=== PATIENT | female | born 1970 | race Caucasian/White ===

== ENCOUNTER 2016-09-12 21:37 | Emergency (ER) | payer BC ==
[2016-09-12 21:44] VITALS: RESP 20
--- NOTE | 2016-09-12 21:54 | ED ---
Chest Pain HPI - General Chief Complaint: Chest Pain Stated Complaint: Chest Pain Time Seen by Provider: 09/12/16 21:47 Source: patient, RN notes reviewed Mode of arrival: wheelchair Limitations: no limitations - History of Present Illness Initial Comments: Patient is a 45-year-old female with chief complaint of a vague dull chest pain for the past day. Patient reports that she was up and active while at home today trying to get things ready for a trip. Patient reports that she drink a 5 hour energy drink and thinks that this could be related to the pain. Patient reports that throughout the day she's felt that she's had some chest discomfort. She states that she did feels some increased shortness of breath while doing activities today. Patient states that she is a nonsmoker. She denies any previous cardiac history. She does have a family history of heart disease. She states that she is relatively healthy at this time. She does have a sense of abdominal surgery history including cholecystectomy and complications after that surgery. Currently at this time patient denies any chest pain. She states that it is somewhat reproducible to palpation over the left breast. Patient denies any diaphoresis, shoulder pain, nausea or vomiting. She states that she has had no fever or chills and denies any cough. - Related Data Home Medications Medication Instructions Recorded Confirmed No Known Home Medications [No 04/08/16 09/12/16 Known Home Medications] Allergies Allergy/AdvReac Type Severity Reaction Status Date / Time azithromycin Allergy Diarrhea Verified 09/12/16 21:44 Review of Systems ROS Statement: Those systems with pertinent positive or pertinent negative responses have been documented in the HPI. ROS Other: All systems not noted in ROS Statement are negative. EKG Findings - EKG Comments: EKG Findings:: EKG shows normal sinus rhythm. Ventricular rate 85 bpm. NH interval 132 ms. QRS duration 76 ms. QT/QTC 370/449 ms. 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 History of Any Multi-Drug Resistant Organisms: None Reported Past Surgical History: Section, Cholecystectomy Additional Past Surgical History / Comment(s): adominal surgery for perforation after cholecystectomy; abdominalplasty, bunions Past Anesthesia/Blood Transfusion Reactions: No Reported Reaction Past Psychological History: No Psychological Hx Reported Smoking Status: Former smoker Past Alcohol Use History: Occasional Past Drug Use History: None Reported - Past Family History Mother Family Medical History: No Reported History General Exam - General Exam Comments Initial Comments: Well-appearing 45-year-old female. No acute distress. Limitations: no limitations General appearance: alert, in no apparent distress Head exam: Present: atraumatic, normocephalic, normal inspection Eye exam: Present: normal appearance, PERRL, EOMI. Absent: scleral icterus, conjunctival injection, periorbital swelling ENT exam: Present: normal exam, mucous membranes moist Neck exam: Present: normal inspection. Absent: tenderness, meningismus, lymphadenopathy Respiratory exam: Present: normal lung sounds bilaterally. Absent: respiratory distress, wheezes, rales, rhonchi, stridor Cardiovascular Exam: Present: regular rate, normal rhythm, normal heart sounds. Absent: systolic murmur, diastolic murmur, rubs, gallop, clicks GI/Abdominal exam: Present: soft, normal bowel sounds. Absent: distended, tenderness, guarding, rebound, rigid Extremities exam: Present: normal inspection, full ROM, normal capillary refill. Absent: tenderness, pedal edema, joint swelling, calf tenderness Back exam: Present: normal inspection Neurological exam: Present: alert, oriented X3, CN II-XII intact Psychiatric exam: Present: normal affect, normal mood Skin exam: Present: warm, dry, intact, normal color. Absent: rash Course Vital Signs 09/12/16 09/12/16 21:41 23:19 Temperature 98.2 F 98.3 F Pulse Rate 78 78 Respiratory 20 20 Rate Blood Pressure 122/83 113/56 O2 Sat by Pulse 98 98 Oximetry - Reevaluation(s) Reevaluation #1: 09/12/16 23:35 Patient was reevaluated at this time. Patient reports that she does notice the pain whenever she moves her arms or seems to take a very deep breath. Days of that the pain is a muscular skeletal issue. Chest Pain [facility] Patient is a 45-year-old female with chief complaint of a vague dull chest pain for the past day. Patient reports that she was up and active while at home today trying to get things ready for a trip. Patient reports that she drink a 5 hour energy drink and thinks that this could be related to the pain. Patient reports that throughout the day she's felt that she's had some chest discomfort. She states that she did feels some increased shortness of breath while doing activities today. Patient states that she is a nonsmoker. She denies any previous cardiac history. She does have a family history of heart disease. She states that she is relatively healthy at this time. She does have a sense of abdominal surgery history including cholecystectomy and complications after that surgery. Currently at this time patient denies any chest pain. She states that it is somewhat reproducible to palpation over the left breast. Patient's EKG is reviewed and shows normal sinus rhythm. No evidence of ST elevation or T-wave inversion. Patient was given IV fluids and labs are obtained. All of her labs are negative for any acute process. Chest x-ray was also negative for pneumonia or cardiomegaly. Patient was reevaluated states that her pain is still there but it seems to be reproducible whenever she is taking a severe deep breath and expands her chest wall muscles. Patient states that it didn't reproducible. Patient's cardiac enzymes were all within normal limits. Given the fact that this pain has been occurring for the entire day there would likely be an elevated and cardiac enzymes at this time. Patient will be discharged and instructed to follow-up with Dr. Valenzuela her primary care physician. I did recommend that she does have a stress test given her family history of heart disease. Patient's mother family agrees. Patient will be discharged at this time and return parameters were discussed. Disposition Clinical Impression: Pleuritic pain Disposition: HOME SELF-CARE Condition: Good Instructions: Chest Pain (ED) Additional Instructions: Follow-up with primary care physician discussed about repeating a cardiac stress test. I recommended taking Motrin or Tylenol for pain. Return to the emergency department if any alarming signs or symptoms occur. Time of Disposition: 23:38
[2016-09-12] MEDS ORDERED: SODIUM CHLORIDE 0.9% 1,000 ML IV STA (22:03)
[2016-09-12] MEDS ORDERED: KETOROLAC 30 MG/ML 1 ML VIAL IVP STA (22:08)
[2016-09-12 22:29] LABS: Basophils # (A) 0.1 k/uL (0-0.2); Basophils % (A) 1 %; CH 28.3; CHCM 33.4; Eosinophils # (A) 0.1 k/uL (0-0.7); Eosinophils % (A) 1 %; HCT 39.7 % (34.0-46.0); HDW 2.54; HGB 12.9 gm/dL (11.4-16.0); Luc # (Auto) 0.22; Luc % (Auto) 2; Lymphocytes # (A) 2.4 k/uL (1.0-4.8); Lymphocytes % (A) 20 %; MCH 27.8 pg (25.0-35.0); MCHC 32.6 g/dL (31.0-37.0); MCV 85.1 fL (80.0-100.0); Mean Platelet Volume 7.1; Monocytes # (A) 0.5 k/uL (0-1.0); Monocytes % (A) 4 %; Neutrophils # (A) 8.7 k/uL (1.3-7.7); Neutrophils % (A) 73 %; RBC 4.66 m/uL (3.80-5.40); RDW 12.9 % (11.5-15.5); WBC (Perox) 12.21
--- NOTE | 2016-09-12 22:45 | XR ---
EXAM: XR Chest, 2 Views. CLINICAL HISTORY: Reason: Chest Pain TECHNIQUE: Frontal and lateral views of the chest. COMPARISON: No relevant prior studies available. FINDINGS: Lungs: Unremarkable. No consolidation. Pleural space: Unremarkable. No pneumothorax. Heart: Unremarkable. No cardiomegaly. Mediastinum: Unremarkable. Bones/joints: Intact without acute abnormality seen. Distal left clavicle appears to be slightly larger than the distal right clavicle although there is overlying artifact from tech marker, and this may be projectional as well, rather than a subtle expansile lesion. This could be reassessed electively. Upper abdomen: Upper abdominal surgical clips noted on the lateral view presumably from cholecystectomy. IMPRESSION: 1. No acute intrathoracic abnormality. 2. Nonacute findings, as above.
[2016-09-12 22:46] LABS: ALT 58 U/L (9-52); AST 35 U/L (14-36); Alkaline Phosphatase 99 U/L (38-126); Amylase 69 U/L (30-110); Anion Gap 11 mmol/L; Blood Urea Nitrogen 15 mg/dL (7-17); Calcium 9.3 mg/dL (8.4-10.2); Carbon Dioxide 26 mmol/L (22-30); Chloride 102 mmol/L (98-107); Glucose 92 mg/dL (74-99); Magnesium 1.8 mg/dL (1.6-2.3); Non-African American GFR(MDRD) >60 (>60 ml/min/1.73 sqM); Potassium 3.9 mmol/L (3.5-5.1); Sodium 139 mmol/L (137-145); Total Bilirubin 0.4 mg/dL (0.2-1.3); Total Protein 7.5 g/dL (6.3-8.2)
[2016-09-12 22:50] LABS: Prothrombin Time 10.1 sec (9.0-12.0)
[2016-09-12 22:54] LABS: Creatine Kinase 63 U/L (30-135)
[2016-09-12 23:04] LABS: Appearance,Urine Clear (Clear); Bilirubin,Urine Negative (Negative); Glucose,Urine (UA) Negative (Negative); Ketones,Urine Negative (Negative); Leukocyte Esterase,Urine Negative (Negative); Nitrite,Urine Negative (Negative); Protein,Urine Negative (Negative); Specific Gravity,Urine 1.006 (1.001-1.035); UA Billing (MACRO vs. MICRO) CHEM; Urobilinogen,Urine <2.0 mg/dL (<2.0)
[2016-09-12 23:08] LABS: Creatine Kinase MB <0.2 ng/mL (0.0-2.4); Troponin I <0.012 ng/mL (0.000-0.034)
[2016-09-12 23:51] VITALS: BP 102/53; PULSE 80; TEMP 98.1
== END 2016-09-12 23:59 | disposition home or self-care (01) ==
LOC: EC 21:37
DX: R07.89 Other chest pain (principal); R06.02 Shortness of breath; Z87.891 Personal history of nicotine dependence; Z88.1 Allergy status to other antibiotic agents
CPT/HCPCS: 99285; 96374; 36415; 93005; 85379; 80053; 82150; 82550; 82553; 83690; 83735; 84484; 85025; 85610; 85730; 81003; 71020; 96361; J1885

== ENCOUNTER → 2017-09-27 | Outpatient (CLI) | payer BC ==
--- NOTE | 2017-09-28 10:33 | MM ---
Reason for exam: screening (asymptomatic). Last mammogram was performed 2 years and 1 month ago. Physical Findings: A clinical breast exam by your physician is recommended on an annual basis and results should be correlated with mammographic findings. MG Screening Mammo w CAD Bilateral CC and MLO view(s) were taken. Prior study comparison: August 14, 2015, bilateral MG screening mammo w CAD. June 11, 2014, bilateral MG diagnostic mammo w CAD PARMINDER. The breast tissue is heterogeneously dense. This may lower the sensitivity of mammography. Distortion upper outer right breast. This finding is changed when compared with previous exams. ASSESSMENT: Incomplete: need additional imaging evaluation, BI-RAD 0 RECOMMENDATION: Special view mammogram of the right breast. If lesion persists on supplemental views, image directed ultrasound is recommended. [facility] will attempt to contact patient to return for supplemental views and ultrasound if indicated.
== END | disposition home or self-care (01) ==
LOC: RADMAMWWP 16:53
PROVIDERS: ATTEND Obstetrics & Gynecology
DX: Z12.31 Encounter for screening mammogram for malignant neoplasm of breast (principal)
CPT/HCPCS: 77067

== ENCOUNTER → 2017-10-04 | Outpatient (CLI) | payer BC ==
--- NOTE | 2017-10-04 08:23 | MM ---
Reason for exam: additional evaluation requested from abnormal screening. Last mammogram was performed less than 1 month ago. Physical Findings: Nurse did not find any significant physical abnormalities on exam. MG Work Up Mamm w CAD RT Spot compression CC, spot compression MLO, and ML view(s) were taken of the right breast. Prior study comparison: September 27, 2017, bilateral MG screening mammo w CAD. August 14, 2015, bilateral MG screening mammo w CAD. The breast tissue is heterogeneously dense. This may lower the sensitivity of mammography. With spot compression, appearance is similar to 06/11/14. No clear persisting architectural distortion. These results were verbally communicated with the patient and result sheet given to the patient on 10/04/17. ASSESSMENT: Probably benign, BI-RAD 3 RECOMMENDATION: Follow-up diagnostic mammogram of the right breast in 6 months.
== END | disposition home or self-care (01) ==
LOC: RADMAMWWP 07:39
PROVIDERS: ATTEND Obstetrics & Gynecology
DX: R92.8 Other abnormal and inconclusive findings on diagnostic imaging of breast (principal)
CPT/HCPCS: 77065

== ENCOUNTER 2018-03-12 15:34 | Emergency (ER) | payer BC ==
--- NOTE | 2018-03-12 16:06 | ED ---
General Adult HPI - General Chief complaint: Chest Pain Stated complaint: Chest pain Source: patient Mode of arrival: wheelchair Limitations: no limitations - History of Present Illness Initial comments: Dictation was produced using [employer] dictation software. please excuse any grammatical, word or spelling errors. Chief Complaint: 47-year-old female with past medical history of reflex dystrophy syndrome presents with 20 minute episode of chest pain. History of Present Illness: 47-year-old female with past medical history of RDS presents with 20 minute episode of chest pain that radiates to the back. Patient states that her symptoms have currently resolved. She states that she was watching TV at home by herself when she had episode of severe chest pain that radiated to the back. She states that some of this pain radiated to her left upper neck. Patient denies any cardiac history. Denies any smoking, dyslipidemia or hypertension or diabetes. Patient has family history of cardiac disease in her father and brother. Patient denies any paresthesias to the arms and legs. The ROS documented in this emergency department record has been reviewed and confirmed by me. Those systems with pertinent positive or negative responses have been documented in the HPI. All other systems are other negative and/or noncontributory. - Related Data Home Medications Medication Instructions Recorded Confirmed No Known Home Medications 04/08/16 09/12/16 Allergies Allergy/AdvReac Type Severity Reaction Status Date / Time azithromycin Allergy Diarrhea Verified 03/12/18 15:38 Review of Systems ROS Statement: Those systems with pertinent positive or pertinent negative responses have been documented in the HPI. ROS Other: All systems not noted in ROS Statement are negative. 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 History of Any Multi-Drug Resistant Organisms: None Reported Past Surgical History: Section, Cholecystectomy Additional Past Surgical History / Comment(s): adominal surgery for perforation after cholecystectomy; abdominalplasty, bunions Past Anesthesia/Blood Transfusion Reactions: No Reported Reaction Past Psychological History: No Psychological Hx Reported Smoking Status: Former smoker Past Alcohol Use History: Occasional Past Drug Use History: None Reported - Past Family History Mother Family Medical History: No Reported History General Exam - General Exam Comments Initial Comments: PHYSICAL EXAM: General Impression: Alert and oriented x3, not in acute distress HEENT: Normocephalic atraumatic, extra-ocular movements intact, pupils equal and reactive to light bilaterally, mucous membranes moist. Cardiovascular: Heart regular rate and rhythm, S1&S2 audible, no murmurs, rubs or gallops Chest: Lungs clear to auscultation bilaterally, no rhonchi, no wheeze, no rales Abdomen: Bowel sounds present, abdomen soft, non-tender, non-distended, no organomegaly Musculoskeletal: Pulses present and equal in all extremities, no peripheral edema Motor: Power 5/5 bilaterally, no focal deficits noted Neurological: CN II-XII grossly intact, no focal motor or sensory deficits noted Skin: Intact with no visualized rashes Psych: Normal affect and mood Limitations: no limitations Course Vital Signs 03/12/18 03/12/18 03/12/18 15:36 16:45 17:47 Temperature 98.2 F Pulse Rate 72 82 78 Respiratory 16 6 L 16 Rate Blood Pressure 126/65 138/81 145/90 O2 Sat by Pulse 100 99 100 Oximetry 03/12/18 19:04 Temperature Pulse Rate 81 Respiratory 15 Rate Blood Pressure 123/67 O2 Sat by Pulse Oximetry Medical Decision Making - Medical Decision Making ED course: 47-year-old female presents with 20 minute episode of chest pain with radiation to the back and is resolved. Vital signs upon arrival are within acceptable limits. Initial EKG showed no findings to suggest acute cardiopulmonary process. Repeat EKG performed several minutes later showed no dynamic changes.Laboratory evaluation obtained. CBC unremarkable, metabolic panel unremarkable. 2 sets of cardiac enzymes are negative. Chest x-ray shows no acute processes. Patient's pain is atypical. Patient does not have any risk factors. Cranial heart score patient is low risk. Patient feels comfortable being discharged to have outpatient workup of chest pain. Patient given aspirin. Patient is told to take daily aspirin. Advised follow-up with primary care physician. Patient states she may be a candidate for cardiac stress test. Told to come back to the emergency department should she have another repeat episode of this. At this point there is no high-risk features to patient's chest pain. No clinical suspicion of acute aortic dissection given that patient is well-appearing and has bilateral symmetrical pulses. Patient understandable agreeable to disposition. All questions and concerns are addressed. EKG Interpretation: A 12 lead EKG was obtained. It was interpreted by myself and attending physician. There is a P wave before every QRS complex. Rate is 81. Rhythm is normal sinus rhythm, MA interval 150, QRS 84, QTC 427. QT is not prolonged. No ST segment depression or elevation. Overall, this EKG is unremarkable - Lab Data Result diagrams: 03/12/18 16:03 03/12/18 16:03 Lab Results 03/12/18 03/12/18 03/12/18 Range/Units 16:03 16:03 16:03 WBC 9.5 (3.8-10.6) k/uL RBC 5.00 (3.80-5.40) m/uL Hgb 14.2 (11.4-16.0) gm/dL Hct 43.9 (34.0-46.0) % MCV 87.7 (80.0-100.0) fL MCH 28.4 (25.0-35.0) pg MCHC 32.4 (31.0-37.0) g/dL RDW 12.9 (11.5-15.5) % Plt Count 243 (150-450) k/uL Neutrophils % 72 % Lymphocytes % 20 % Monocytes % 4 % Eosinophils % 1 % Basophils % 1 % Neutrophils # 6.9 (1.3-7.7) k/uL Lymphocytes # 1.9 (1.0-4.8) k/uL Monocytes # 0.3 (0-1.0) k/uL Eosinophils # 0.1 (0-0.7) k/uL Basophils # 0.1 (0-0.2) k/uL Sodium 141 (137-145) mmol/L Potassium 4.3 (3.5-5.1) mmol/L Chloride 102 (98-107) mmol/L Carbon Dioxide 25 (22-30) mmol/L Anion Gap 14 mmol/L BUN 16 (7-17) mg/dL Creatinine 0.82 (0.52-1.04) mg/dL Est GFR (CKD-EPI)AfAm >90 (>60 ml/min/1.73 sqM) Est GFR (CKD-EPI)NonAf 87 (>60 ml/min/1.73 sqM) Glucose 92 (74-99) mg/dL Calcium 10.3 H (8.4-10.2) mg/dL Total Bilirubin 0.4 (0.2-1.3) mg/dL AST 26 (14-36) U/L ALT 28 (9-52) U/L Alkaline Phosphatase 86 (38-126) U/L Total Creatine Kinase 52 (30-135) U/L CK-MB (CK-2) 0.3 (0.0-2.4) ng/mL CK-MB (CK-2) Rel Index 0.6 Troponin I <0.012 (0.000-0.034) ng/mL Total Protein 8.4 H (6.3-8.2) g/dL Albumin 5.0 (3.5-5.0) g/dL 03/12/18 Range/Units 19:00 WBC (3.8-10.6) k/uL RBC (3.80-5.40) m/uL Hgb (11.4-16.0) gm/dL Hct (34.0-46.0) % MCV (80.0-100.0) fL MCH (25.0-35.0) pg MCHC (31.0-37.0) g/dL RDW (11.5-15.5) % Plt Count (150-450) k/uL Neutrophils % % Lymphocytes % % Monocytes % % Eosinophils % % Basophils % % Neutrophils # (1.3-7.7) k/uL Lymphocytes # (1.0-4.8) k/uL Monocytes # (0-1.0) k/uL Eosinophils # (0-0.7) k/uL Basophils # (0-0.2) k/uL Sodium (137-145) mmol/L Potassium (3.5-5.1) mmol/L Chloride (98-107) mmol/L Carbon Dioxide (22-30) mmol/L Anion Gap mmol/L BUN (7-17) mg/dL Creatinine (0.52-1.04) mg/dL Est GFR (CKD-EPI)AfAm (>60 ml/min/1.73 sqM) Est GFR (CKD-EPI)NonAf (>60 ml/min/1.73 sqM) Glucose (74-99) mg/dL Calcium (8.4-10.2) mg/dL Total Bilirubin (0.2-1.3) mg/dL AST (14-36) U/L ALT (9-52) U/L Alkaline Phosphatase (38-126) U/L Total Creatine Kinase (30-135) U/L CK-MB (CK-2) (0.0-2.4) ng/mL CK-MB (CK-2) Rel Index Troponin I <0.012 (0.000-0.034) ng/mL Total Protein (6.3-8.2) g/dL Albumin (3.5-5.0) g/dL Disposition Clinical Impression: Chest pain Disposition: HOME SELF-CARE Condition: Good Instructions: Chest Pain (ED) Is patient prescribed a controlled substance at d/c from ED?: No Referrals: Calos Valenzuela DO [Primary Care Provider] - 1-2 days Time of Disposition: 20:07
[2018-03-12 16:15] LABS: Basophils # (A) 0.1 k/uL (0-0.2); Basophils % (A) 1 %; Eosinophils # (A) 0.1 k/uL (0-0.7); Eosinophils % (A) 1 %; HCT 43.9 % (34.0-46.0); HGB 14.2 gm/dL (11.4-16.0); Lymphocytes # (A) 1.9 k/uL (1.0-4.8); Lymphocytes % (A) 20 %; MCH 28.4 pg (25.0-35.0); MCHC 32.4 g/dL (31.0-37.0); MCV 87.7 fL (80.0-100.0); Mean Platelet Volume 7.2; Monocytes # (A) 0.3 k/uL (0-1.0); Monocytes % (A) 4 %; Neutrophils # (A) 6.9 k/uL (1.3-7.7); Neutrophils % (A) 72 %; Platelet Count 243 k/uL (150-450); RDW 12.9 % (11.5-15.5); WBC 9.5 k/uL (3.8-10.6)
--- NOTE | 2018-03-12 16:17 | XR ---
EXAMINATION TYPE: XR chest 2V DATE OF EXAM: 03/12/2018 COMPARISON: Chest radiograph 09/12/2016 HISTORY: Chest pain and back pain TECHNIQUE: Frontal and lateral views of the chest are obtained. FINDINGS: There is no focal air space opacity, pleural effusion, or pneumothorax seen. The cardiac silhouette size is within normal limits. The osseous structures are intact. Similar appearance of t he left clavicle. IMPRESSION: No acute cardiopulmonary process. No significant interval change.
[2018-03-12 16:31] LABS: ALT 28 U/L (9-52); AST 26 U/L (14-36); Alkaline Phosphatase 86 U/L (38-126); Anion Gap 14 mmol/L; Blood Urea Nitrogen 16 mg/dL (7-17); Calcium 10.3 mg/dL (8.4-10.2); Carbon Dioxide 25 mmol/L (22-30); Chloride 102 mmol/L (98-107); Creatine Kinase 52 U/L (30-135); Glucose 92 mg/dL (74-99); Potassium 4.3 mmol/L (3.5-5.1); Sodium 141 mmol/L (137-145); Total Bilirubin 0.4 mg/dL (0.2-1.3); Total Protein 8.4 g/dL (6.3-8.2)
[2018-03-12 16:43] LABS: Creatine Kinase MB 0.3 ng/mL (0.0-2.4); Troponin I <0.012 ng/mL (0.000-0.034)
[2018-03-12] MEDS ORDERED: KETOROLAC 30 MG/ML 1 ML VIAL IVP STA (18:03)
[2018-03-12 19:04] VITALS: RESP 15
[2018-03-12] MEDS ORDERED: ASPIRIN 81 MG PO STA (20:06)
[2018-03-12 20:20] VITALS: BP 117/69; PULSE 77; TEMP 97.9
== END 2018-03-12 20:20 | disposition home or self-care (01) ==
LOC: EC 15:34
DX: R07.89 Other chest pain (principal); Z87.891 Personal history of nicotine dependence; Z82.49 Family history of ischemic heart disease and other diseases of the circulatory system; Z88.1 Allergy status to other antibiotic agents
CPT/HCPCS: 36415; 93005; 80053; 82550; 82553; 84484; 85025; 71046; 99285; 96374; J1885

== ENCOUNTER → 2018-04-14 | Outpatient (CLI) | payer BC ==
--- NOTE | 2018-04-14 16:26 | ECHOF ---
Referral Reason:R07.9 Chest pain MEASUREMENTS -------- HEIGHT: 172.7 cm WEIGHT: 99.8 kg BP: IVSd: 1.1 cm (0.6 - 1.1) LVIDd: 4.2 cm (3.9 - 5.3) LVPWd: 1.3 cm (0.6 - 1.1) IVSs: 1.9 cm LVIDs: 2.1 cm LVPWs: 2.0 cm RVIDd: 2.7 cm (< 3.3) Ao Diam: 2.9 cm (2.0 - 3.7) LA Diam: 2.9 cm (2.7 - 3.8) AV Cusp: 2.3 cm (1.5 - 2.6) EPSS: 0.4 cm MV E Jonathan: 0.82 m/s MV DecT: 234 ms MV A Jonathan: 0.56 m/s MV E/A Ratio: 1.46 AR PHT: 156 ms RAP: 5.00 mmHg RVSP: 14.00 mmHg MV EF SLOPE: 94.29 mm/s (70 - 150) MV EXCURSION: 11.84 mm (> 18.000) FINDINGS -------- Sinus rhythm. This was a technically good study. The left ventricular size is normal. There is borderline concentric left ventricular hypertrophy. Overall left ventricular systolic function is normal with, an EF between 55 - 60 %. The right ventricle is normal in size and function. The left atrium is normal in size. The right atrium is normal in size. The aortic valve is trileaflet and appears structurally normal. Trace amount of aortic regurgitatio n. The mitral valve leaflets are mildly thickened. Mild mitral regurgitation is present. Trace tricuspid regurgitation present. The right ventricular systolic pressure, as measured by Dopp ler, is 14.00mmHg. Pulmonic valve appears structurally normal. The aortic root size is normal. The pericardium is normal. CONCLUSIONS -------- 1. Sinus rhythm. 2. This was a technically good study. 3. The left ventricular size is normal. 4. There is borderline concentric left ventricular hypertrophy. 5. Overall left ventricular systolic function is normal with, an EF between 55 - 60 %. 6. The right ventricle is normal in size and function. 7. The left atrium is normal in size. 8. The right atrium is normal in size. 9. The aortic valve is trileaflet and appears structurally normal. 10. Trace amount of aortic regurgitation. 11. The mitral valve leaflets are mildly thickened. 12. Mild mitral regurgitation is present. 13. Trace tricuspid regurgitation present. 14. The right ventricular systolic pressure, as measured by Doppler, is 14.00mmHg. 15. Pulmonic valve appears structurally normal. 16. The aortic root size is normal. 17. The pericardium is normal. ADOBE MAKER: Kaur Motta RDCS
--- NOTE | 2018-04-14 20:39 | EST ---
EXERCISE STRESS AGE: 47 SEX: F HT: 68 WT: 220 PROTOCOL: Cortez STAGE: 3 DURATION OF EXERCISE: 8:00 HEART RATE REST: 85 BLOOD PRESSURE REST: 120/79 MAXIMUM HEART RATE ACHIEVED: 156 MAXIMUM BLOOD PRESSURE: 173/61 85% MPHR: 149 100% MPHR: 175 METS: 9.7 INDICATIONS: CP CLINICAL INFORMATION: 47-year-old female referred by Dr. Cortés for evaluation of chest pain. She underwent exercise stress test. Baseline heart rate 85 beats per minute. Baseline blood pressure 120/79 mmHg. Baseline 12-lead ECG shows sinus rhythm with nonspecific ST-T abnormalities in the in the lateral precordial leads with early repolarization abnormality in the high lateral leads. Patient exercised on a Cortez protocol for 8 minutes achieving a peak heart rate of 156 beats per minute. There was no ECG evidence for ischemia. No arrhythmias noted. Nuclear portion of the stress test will be reported separately. IMPRESSION: Average exercise capacity. Normal blood pressure response to exercise. No ECG evidence for ischemia. No arrhythmias noted. MMODL / IJN: [id number] /
== END | disposition home or self-care (01) ==
LOC: RADNMMAIN 08:49
PROVIDERS: ATTEND Family Medicine
DX: I34.0 Nonrheumatic mitral (valve) insufficiency (principal); I51.7 Cardiomegaly; R07.9 Chest pain, unspecified
CPT/HCPCS: 93017; 93306

== ENCOUNTER → 2018-05-25 | Outpatient (CLI) | payer BC ==
--- NOTE | 2018-05-25 09:18 | MM ---
Reason for exam: follow-up at short interval from prior study. Last mammogram was performed 8 months ago. Physical Findings: Nurse did not find any significant physical abnormalities on exam. MG 3D Diag Mammo W/Cad PARMINDER Bilateral CC and MLO view(s) were taken. Prior study comparison: October 04, 2017, right breast MG work up mamm w CAD RT. September 27, 2017, bilateral MG screening mammo w CAD. The breast tissue is heterogeneously dense. This may lower the sensitivity of mammography. No suspicious calcifications are seen. There is no discrete abnormality. No significant new findings when compared with previous films. These results were verbally communicated with the patient and result sheet given to the patient on 05/25/18. ASSESSMENT: Negative, BI-RAD 1 RECOMMENDATION: Return to routine screening mammogram schedule for both breasts.
== END ==
LOC: RADMAMWWP 08:18
PROVIDERS: ATTEND Obstetrics & Gynecology
DX: N64.4 Mastodynia (principal)
CPT/HCPCS: 77062; 77066

== ENCOUNTER 2018-09-02 10:41 | Day surgery (SDC) | payer BC ==
[2018-08-30 14:20] VITALS: BMI 31.9
[~2018-09-02 10:41] MED LIST: LACTATED RINGERS 1,000 ML IV SCH; LIDOCAINE 1% 20 ML VIAL (10MG/ML) FOR IV START INTRADERMA PRN
[2018-09-02 11:23] VITALS: TEMP 98.4
[2018-09-02] MEDS ORDERED: LIDOCAINE 1% INJ 10MG/ML (20 ML MDV) ONE (11:59)
[2018-09-02] MEDS ORDERED: PROPOFOL 10 MG/ML 20 ML VIAL IV ONE (11:59)
--- NOTE | 2018-09-02 12:19 | P.PCN ---
Date of Procedure: 09/02/18 Procedure(s) Performed: BRIEF HISTORY: Patient is a 47-year-old pleasant white female, scheduled for an elective colonoscopy as a part of evaluation of intermittent rectal bleeding for the last 3 weeks' duration. She had an episode of significant bleeding that lasted for about 3 days and since then has been having intermittent bleeding. Denies any significant change in her bowel habits. PROCEDURE PERFORMED: Colonoscopy. PREOPERATIVE DIAGNOSIS: Intermittent rectal bleeding. IV sedation per Anesthesia. PROCEDURE: After informed consent was obtained, the patient, was brought into the endoscopy unit. IV sedation was administered by Anesthesia under continuous monitoring. Digital rectal examination was normal. Initially the Olympus CF-160 flexible video colonoscope was then inserted in the rectum, gradually advanced into the cecum without any difficulty. Careful examination was performed as the scope was gradually being withdrawn. Ileocecal valve and the appendiceal orifice were visualized and appeared normal. Prep was excellent. Mucosa of the cecum, ascending colon, transverse colon, descending colon, sigmoid colon, and rectum appeared normal. Scattered sigmoid diverticulosis seen. Retroflexion was performed in the rectum and small internal hemorrhoids were seen. The patient tolerated the procedure well. IMPRESSION: Normal-appearing colon from rectum to cecum with no evidence of colitis or colorectal neoplasia Scattered sigmoid diverticulosis Small internal hemorrhoids. RECOMMENDATIONS: Findings of this examination were discussed with the patient as well as a family. She was advised to be a high-fiber diet and fiber supplements a regular basis and avoid straining and constipation.
[2018-09-02 12:58] VITALS: BP 131/80; PULSE 64; RESP 18
== END 2018-09-02 13:13 | disposition home or self-care (01) ==
LOC: ORWHC2ENDO 10:41
PROVIDERS: ATTEND Internal Medicine Gastroenterology
DX: K57.30 Diverticulosis of large intestine without perforation or abscess without bleeding (principal); K64.8 Other hemorrhoids; K62.5 Hemorrhage of anus and rectum; K21.9 Gastro-esophageal reflux disease without esophagitis; Z90.49 Acquired absence of other specified parts of digestive tract; Z87.891 Personal history of nicotine dependence; Z79.899 Other long term (current) drug therapy; Z88.1 Allergy status to other antibiotic agents
CPT/HCPCS: 81025; 45378; J2001; J2704

== ENCOUNTER 2019-06-08 06:32 | Day surgery (SDC) | payer BC ==
[2019-06-06 12:04] VITALS: BMI 34.9
[~2019-06-08 06:32] MED LIST changes: +DEXAMETHASONE SOD PHOSPHATE 10 MG/ML 1 ML VIAL IV ONE; +HYDROmorphone 0.5 MG/0.5 ML SYRINGE IVP PRN; -LACTATED RINGERS 1,000 ML IV SCH; +MIDAZOLAM 2 MG/2 ML VIAL IV PRN; +ONDANSETRON 4 MG/2 ML VIAL IVP ONE; +SCOPOLAMINE 1.5MG/72HR PATCH TRANSDERM ONE
[2019-06-08] MEDS: LACTATED RINGERS 1,000 ML IV SCH ×2 (07:36→13:56)
[2019-06-08] MEDS ORDERED: ROPIVACAINE 5 MG/ML 30 ML VIAL ONE (07:52)
[2019-06-08] MEDS ORDERED: PHENYLEPHRINE-0.9% NACL SYG 1 MG/10 ML SYRINGE ONE (07:52)
[2019-06-08] MEDS ORDERED: fentaNYL (PF) 50 MCG/ML 2 ML AMP ONE (07:52)
[2019-06-08] MEDS ORDERED: LIDOCAINE 1% INJ 10MG/ML (20 ML MDV) ONE (07:52)
[2019-06-08] MEDS ORDERED: PROPOFOL 10 MG/ML 20 ML VIAL IV ONE (07:52)
[2019-06-08] MEDS ORDERED: MIDAZOLAM 2 MG/2 ML VIAL ONE (07:52)
[2019-06-08] MEDS ORDERED: GLYCOPYRROLATE 0.2 MG/ML 2 ML VIAL ONE (07:52)
[2019-06-08] MEDS ORDERED: ROCURONIUM BROMIDE 10 MG/ML 10 ML VIAL IV ONE (07:52)
[2019-06-08] MEDS ORDERED: SUCCINYLCHOLINE CHLORIDE 100 MG/5 ML SYR IV ONE (07:52)
[2019-06-08] MEDS ORDERED: DEXAMETHASONE SOD PHOSPHATE 4 MG/ML 1 ML VIAL ONE (07:52)
[2019-06-08] MEDS ORDERED: HYDROmorphone (PF) 1 MG/ML ONE (07:52)
[2019-06-08] MEDS ORDERED: NEOSTIGMINE 1 MG/ML 10 ML VIAL ONE (07:52)
--- NOTE | 2019-06-08 10:19 | P.OP ---
Date of Procedure: 06/08/19 Preoperative Diagnosis: Recurrent right hallux valgus deformity Postoperative Diagnosis: same Procedure(s) Performed: 1. Triplanar corrective first tarsometatarsal joint arthrodesis 2. Correction of right hallux valgus with modified Acevedo procedure 3. Use of fluoroscopy by physician, right foot 4. Application of short leg splint by physician, right leg Anesthesia: GETA, regional Surgeon: Jonathan White Communications Controller #1: Costa Loo IV fluids (ml): 1,200 Pathology: none sent Condition: stable Disposition: PACU Indications for Procedure: the patient is very pleasant previously healthy 48 year old female who previously underwent right hallux valgus surgery by a corporate account executive several years ago. She had a distal first metatarsal osteotomy, aggressive medial eminence resection, and an Geraldo osteotomy. she had significant under correction of her deformity and developed a painful, recurrent deformity. She failed a long course of nonsurgical treatment including shoe modification, and toe spacers. She presented to my office with continued pain. Clinically she had a moderate to severe hallux valgus deformity. She had no pain with passive range of motion of the first MTP joint or the sesamoids. Her x-rays showed prior surgery with an aggressive medial eminence resection, distal first metatarsal osteotomy, and an Geraldo osteotomy as well as a widened intermetatarsal angle, an incongruent first MTP joint, and uncovered to the lateral sesamoid. We discussed different surgical options including a first MTP arthrodesis and a modified Lapidus procedure. The patient had no pain with passive range of motion of the MTP joint and requested a modified Lapidus type procedure. Since she had no pain with passive range of motion of the first MTP joint or pain at the sesamoids this is reasonable. She understands the limitations and correction due to the prior surgery. We discussed potential risks and complications of surgery including but not limited to risk of anesthesia, infection, wound healing issues, nonunion, malunion, under correction, overcorrection, recurrence, DVT, PE, to satisfaction with surgery, need for further surgery, some dramatic hardware, and possibly loss of life or limb. Patient also knowledge other less common complications. She provided consent to go forward with surgery. Description of Procedure: the patient was identified in preop holding and the correct right foot was yohan ed with my initials. I reviewed the consent form with the patient and her mom. All their questions were answered. A block was given by anesthesia. The patient was then brought back to the operating room. She was positioned on the OR table where an anesthetic and antibiotics were given by anesthesia. A tourniquet was applied to the proximal aspect of the right leg. A bump was placed in the right buttock internally rotate the leg to neutral. The left leg was secured to the table foam and tape. The right leg was then prepped and draped in the standard sterile fashion. Prior to starting surgery timeout was performed identifying the correct patient, operative extremity, and procedure. The patient's leg was then elevated, exsanguinated with an Esmarch bandage, and the tourniquet was inflated to 250 mmHg. I began by outlining a longitudinal incision starting at the proximal pole of the medial cuneiform and extending distally to the midshaft of the first metatarsal. The EHL tendon was found to be "bowstring tight" and a Z- lengthening was performed. The capsule was incised longitudinally in line with the skin incision. The first tarsometatarsal joint was opened. A saw was used to plane the first metatarsal base for rotation and a quarter inch osteotome was used to release the plantar capsule to free up the metatarsal for rotation. A 1 inch incision was then made in the first webspace. Dissection was carried down to the subcutaneous tissue. The Acevedo portion of the procedure was then performed releasing the abductor tendon, the lateral joint capsule of the MTP joint, and the sesamoid suspensory ligament. attention was then turned proximally. A joystick was placed in the 2 o'clock position of the metatarsal parallel and 1 cm distal to the TMT joint. Under live fluoroscopy I rotated the first metatarsal and was able to cover the lateral sesamoid. A pocket hole was made at the lateral base the first metatarsal and a 2.5 mm fulcrum was placed. A stab incision was made over the midshaft of the second metatarsal. An triage assistant rotated the first metatarsal joystick pin and I placed the positioner with 1 miroslava over the lateral shaft of the second metatarsal and the Over the plantar medial flare of the first metatarsal. The positioner was gently tightened to 2 fingerbreadths tightness. Fluoroscopy was used to verify correction. A K wire was placed within the positioner to hold the correction. Fluoroscopy was then used to verify correction again. The lateral sesamoid was covered, there was correction of the intermetatarsal angle, and there was medial gapping of the tarsometatarsal joint. I then placed the joint seeker in the far lateral portion of the joint to "make a corner" with the fulcrum. A low angle cut guide was placed over the joint seeker and pinned into place. Fluoroscopy was used to verify that flat conservative cuts were made off the cuneiform and metatarsal. An oblique pin was then placed through the cut guide hold the cu tting guide down to bone. A small microsagittal saw was used to remove bone from the medial cuneiform and metatarsal. The cut guide, oblique pin, and positioner were all removed. A distractor was placed with an extra 10 of rotation. The cut bone was removed and the joint was thoroughly irrigated. On inspection of her flat symmetric cuts of the cuneiform and metatarsal. All cartilage had been removed. A 2.0 mm drill bit was used to thoroughly fenestrate the subchondral bone. I then gently tightened the compressor placing the 1 mm fulcrum laterally. Clinically the toe appeared straight. Fluoroscopy was used to verify correction of the deformity and full symmetric compression of the joint on biplanar fluoroscopy. An eccentric replaced olive tipped K wires placed laterally across the joint holding the reduction. I then proceeded to place the medial plate with locking screws. The dorsal plate was placed as far lateral as possible and secured with locking screws. The olive-tipped K wire was removed. The correction clinically appeared to be excellent. Fluoroscopy was taken to verify correction and placement of hardware. The wound was then thoroughly irrigated and closed in layers with 2-0 Vicryl for the capsule, 3-0 Ethibond for the EHL tendon repair, 3-0 Monocryl for the deep subcu, and 3-0 nylon for the skin. A sterile dressing was applied. The drapes were taken down and a well-padded bulky Steele splint was placed with the ankle in neutral. The patient was awoken from her anesthetic, transferred from the OR table to a gurney, and brought to recovery haven't helped procedure well. Costa Loo PA-C was required to skilled triage assistant for patient positioning, surgical exposure, retraction, placement of hardware, and application of splint. Plan: The patient is going to be discharged home as an outpatient purchase strictly nonweightbearing on her operative extremity. She is to leave the splint on at all times. He will follow-up in 2 weeks for splint removal, nonweightbearing x-rays of the foot, and likely suture removal.
[2019-06-08 10:38] VITALS: TEMP 99.3
--- NOTE | 2019-06-08 10:44 | FL ---
Fluoroscopy HISTORY: Arthrodesis, hallux valgus deformity 80 seconds fluoroscopy time supplied to the referring clinician. 4 intraoperative C-arm images docum ent the procedure. See dictated report from orthopedic surgery.
--- NOTE | 2019-06-08 10:49 | XR ---
Limited right foot HISTORY: Hallux valgus deformity 4views of the right foot from intraoperative imaging document the procedure
[2019-06-08] MEDS ORDERED: MIDAZOLAM 2 MG/2 ML VIAL IVP ONE ×2 (12:20→12:23)
[2019-06-08] MEDS ORDERED: HYDROmorphone 1 MG/ML 1 ML SYRINGE IVP ONE ×3 (12:35→12:41)
[2019-06-08 12:54] VITALS: RESP 16
[2019-06-08] MEDS ORDERED: HYDROcodone/APAP 5-325MG 1 EACH TAB PO ONE (13:00)
[2019-06-08 13:56] VITALS: BP 111/74; PULSE 96
--- NOTE | 2019-06-08 21:22 | P.ANPRN ---
Procedure Note - Anesthesia - Nerve Block Performed Right Popliteal Single Time Out Performed: Yes Date of Procedure: 06/08/19 Procedure Start Time: : Procedure Stop Time: : Location of Patient: PreOp Indication: Acute Post-Operative Pain, Requested by Surgeon Sedation Type: Sedate with meaningful contact maintained Preparation: Sterile Prep Position: Left Lateral Needle Types: Pajunk Needle Gauge: 21 Ultrasound used to visualize needle placement: Yes Ultrasound used to observe medication spread: Yes Blood Aspirated: No Pain Paresthesia on Injection Noted: No Resistance on Injection: Normal Image Stored and Saved: Yes Events: Uneventful and Well Tolerated (ropi .5% 30 cc plus dexamethasone 4mg)
--- NOTE | 2019-06-08 21:24 | P.ANPRN ---
Procedure Note - Anesthesia - Nerve Block Performed Right Adductor Canal Single Time Out Performed: Yes Date of Procedure: 06/08/19 Procedure Start Time: 11:16 Procedure Stop Time: 11:20 Location of Patient: PreOp Indication: Acute Post-Operative Pain, Requested by Surgeon Sedation Type: Sedate with meaningful contact maintained Preparation: Sterile Prep Position: Supine Needle Types: Pajunk Needle Gauge: 21 Ultrasound used to visualize needle placement: Yes Ultrasound used to observe medication spread: Yes Blood Aspirated: No Pain Paresthesia on Injection Noted: No Resistance on Injection: Normal Image Stored and Saved: Yes Events: Uneventful and Well Tolerated (ropi .5% 30 cc)
== END 2019-06-08 14:14 | disposition home or self-care (01) ==
LOC: OR 06:32
PROVIDERS: ATTEND Orthopaedic Surgery
DX: M20.11 Hallux valgus (acquired), right foot (principal); M20.22 Hallux rigidus, left foot; F32.9 Major depressive disorder, single episode, unspecified; K58.9 Irritable bowel syndrome, unspecified; Z79.899 Other long term (current) drug therapy; Z88.1 Allergy status to other antibiotic agents; Z90.49 Acquired absence of other specified parts of digestive tract; Z98.890 Other specified postprocedural states; Z97.3 Presence of spectacles and contact lenses; Z87.891 Personal history of nicotine dependence; Z82.49 Family history of ischemic heart disease and other diseases of the circulatory system; Z83.3 Family history of diabetes mellitus
CPT/HCPCS: 28740; 28292; 64447; 81025; 76942; 73620; C1713; J2250; J1100 ×2; J2710; J0690; J2405; J2001; J3010; J1170; J2795; J2370; J0330; J2704; 64445

== ENCOUNTER → 2020-02-01 | Outpatient (CLI) | payer BC ==
[2020-02-01 15:19] VITALS: BP 122/68; PULSE 89; RESP 16; TEMP 98.2; BMI 37.0
--- NOTE | 2020-02-01 19:21 | P.HPBAR ---
Bariatric H&P - History & Physicial H&P Date: 02/01/20 History & Physicial: Visit/CC: Initial Patient initial contact: Initial weight: 113.653 kg Initial weight in pounds: 250.56 Height: 5 ft 9 in Initial BMI: 37.0 Last weight: Current weight: 113.653 kg Current weight in pounds: 250.56 Current BMI: 37.0 [place] body weight (based on NIH guidelines): 65.771 kg Excess body weight loss: 0.0% The patient is a 49 year-old F who presents for Bariatric Assessment. Patient presents stating she is interested in sleeve gastrectomy. The patient suffers from GERD. She believes she may have sleep apnea but no testing was performed. No tobacco use. BMI 37. Denies DVT or dysphagia. In 2007 patient had abdominoplasty. 2009 the patient underwent laparoscopic cholecystectomy but unfortunately she apparently had some sort of bowel leak postoperatively which required laparotomy and bowel resection. Patient has a large midline incision. Review of Systems The patient denies any acute changes in vision or hearing, no dysphagia or odynophagia, no chest pain or shortness of breath, no dysuria or hematuria, no headache, no runny nose, no rectal bleeding or melena, no unexplained weight loss Past Medical History Past Medical History: GERD/Reflux, Osteoarthritis (OA), Sleep Apnea/CPAP/BIPAP Additional Past Medical History / Comment(s): RSD(REFLEX SYMPATHETIC DYSTROPHY)- CURRENTLY IN REMISSION. History of Any Multi-Drug Resistant Organisms: None Reported Past Surgical History: Section, Cholecystectomy, Orthopedic Surgery, Ut erine Ablation Additional Past Surgical History / Comment(s): CHOLECYSTECTOMY AND SMALL INTESTINE NICKED AND HAD ABDOMINAL SURGERY, ABDOMINOPLASTY, BUNIONECTOMY. Past Anesthesia/Blood Transfusion Reactions: Postoperative Nausea & Vomiting (PONV) Additional Past Anesthesia/Blood Transfusion Reaction / Comm: FIRST COLONOSCOPY SHE WAS AWARE OF WHAT WAS GOING ON. Past Psychological History: Anxiety, Depression Smoking Status: Former smoker Past Alcohol Use History: Occasional Additional Past Alcohol Use History / Comment(s): QUIT SMOKING in 2002, SMOKED 10 YEARS. Past Drug Use History: None Reported - Past Family History Mother Family Medical History: No Reported History Surgical - Exam Vital Signs Temp Pulse Resp BP 98.2 F 89 16 122/68 02/01/20 15:15 02/01/20 15:15 02/01/20 15:15 02/01/20 15:15 Physical exam: General: Well-developed, well-nourished HEENT: Normocephalic, sclerae nonicteric Abdomen: Nontender, nondistended, large midline incision and transverse Pfannenstiel incision from abdominoplasty Extremities: No edema Neuro: Alert and oriented Bariatric Assessment & Plan (1) Obesity (BMI 30-39.9) Narrative/Plan: 49-year-old female with complaints of obesity. Patient has initiated her supervised weight loss requirements. She is on second month out of 7. We'll tentatively plan EGD 4-5 months from now. Will obtain patient's previous operative report from her bowel resection. We'll order sleep study at this time. Risks and benefits of the surgical options reviewed in detail with the patient today. All questions answered. Status: Acute Bariatric Checklist Checklist: Plan: Checklist: EGD: 1. Hiatal hernia: 2. H. Pylori: HgbA1c: Vitamin D: Smoking: Former smoker Primary care physician referral: Shameka Cortés Psychiatry clearance: Cardiology clearance: Sleep study: Diet journal: VTE risk score: VTE risk level: Rehab needs at discharge:
== END | disposition home or self-care (01) ==
LOC: BARWHC3 14:40
PROVIDERS: ATTEND Surgery
DX: E66.9 Obesity, unspecified (principal); Z68.30 Body mass index [BMI] 30.0-30.9, adult; Z87.891 Personal history of nicotine dependence
CPT/HCPCS: 99201

== ENCOUNTER → 2020-03-07 | Outpatient (CLI) | payer BC ==
[2020-03-07 15:54] LABS: HCT 41.4 % (34.0-46.0); HGB 13.4 gm/dL (11.4-16.0); MCH 28.1 pg (25.0-35.0); MCHC 32.5 g/dL (31.0-37.0); MCV 86.6 fL (80.0-100.0); Mean Platelet Volume 7.5; Platelet Count 255 k/uL (150-450); RBC 4.78 m/uL (3.80-5.40); RDW 12.9 % (11.5-15.5); WBC 11.2 k/uL (3.8-10.6)
[2020-03-08 01:25] LABS: African American GFR (CKD) 101.8 (60.0-200.0); Albumin 4.8 g/dL (3.80-4.90); Anion Gap 8.4 mmol/L (4.00-12.00); BUN/Creat Ratio 23.75 Ratio (12.00-20.00); Calcium 9.5 mg/dL (8.7-10.3); Carbon Dioxide 28.6 mmol/L (21.6-31.8); Globulin 2.4 g/dL (1.6-3.3); Non-African American GFR(CKD) 87.8 (60.0-200.0); Potassium 4.3 mmol/L (3.5-5.5); Total Bilirubin 0.2 mg/dL (0.3-1.2); Total Protein 7.2 g/dL (6.2-8.2)
[2020-03-08 01:34] LABS: Folate, Serum 12.1 ng/mL
== END | disposition home or self-care (01) ==
LOC: LABWHC1 15:19
PROVIDERS: ATTEND Surgery
DX: E55.9 Vitamin D deficiency, unspecified (principal); K90.89 Other intestinal malabsorption; E66.01 Morbid (severe) obesity due to excess calories
CPT/HCPCS: 36415; 80053; 82306; 82607; 82746; 83036; 83540; 84425; 85027; 93005

== ENCOUNTER → 2020-03-07 | Outpatient (CLI) | payer BC ==
--- NOTE | 2020-03-11 08:59 | MM ---
Reason for exam: screening (asymptomatic). Last mammogram was performed 1 year and 9 months ago. Physical Findings: A clinical breast exam by your physician is recommended on an annual basis and results should be correlated with mammographic findings. MG Screening Mammo w CAD Bilateral CC and MLO view(s) were taken. Prior study comparison: May 25, 2018, bilateral MG 3d diag mammo w/cad PARMINDER. October 04, 2017, right breast MG work up mamm w CAD RT. The breast tissue is heterogeneously dense. This may lower the sensitivity of mammography. No significant changes when compared with prior studies. ASSESSMENT: Negative, BI-RAD 1 RECOMMENDATION: Routine screening mammogram of both breasts in 1 year.
== END | disposition home or self-care (01) ==
LOC: RADMAMWWP 15:04
PROVIDERS: ATTEND Family Medicine
DX: Z12.31 Encounter for screening mammogram for malignant neoplasm of breast (principal)
CPT/HCPCS: 77067

== ENCOUNTER → 2020-06-04 | Day surgery (SDC) | payer BC ==
[2020-05-30 15:44] VITALS: BMI 39.8
[~2020-06-04] MED LIST changes: -DEXAMETHASONE SOD PHOSPHATE 10 MG/ML 1 ML VIAL IV ONE; +GLYCOPYRROLATE 0.2 MG/ML 2 ML VIAL ONE; -HYDROmorphone 0.5 MG/0.5 ML SYRINGE IVP PRN; +LACTATED RINGERS 1,000 ML IV SCH; +LIDOCAINE 1% (10MG/ML) FOR IV START INTRADERMA PRN; -LIDOCAINE 1% 20 ML VIAL (10MG/ML) FOR IV START INTRADERMA PRN; +LIDOCAINE 1% INJ 10MG/ML (20 ML MDV) ONE; -MIDAZOLAM 2 MG/2 ML VIAL IV PRN; +MIDAZOLAM 2 MG/2 ML VIAL ONE; -ONDANSETRON 4 MG/2 ML VIAL IVP ONE; +PROPOFOL 10 MG/ML 20 ML VIAL IV ONE; -SCOPOLAMINE 1.5MG/72HR PATCH TRANSDERM ONE
[2020-06-04 09:45] VITALS: TEMP 97.4
--- NOTE | 2020-06-04 10:03 | P.GSHP ---
History of Present Illness H&P Date: 06/04/20 Chief Complaint: GERD Patient today for upper endoscopy. Patient with history of chronic reflux. Patient is being worked up for sleeve gastrectomy. Past Medical History Past Medical History: GERD/Reflux, Osteoarthritis (OA), Sleep Apnea/CPAP/BIPAP Additional Past Medical History / Comment(s): RSD(REFLEX SYMPATHETIC DYSTROPHY). MIGRAINE HEADACHE, History of Any Multi-Drug Resistant Organisms: None Reported Past Surgical History: Section, Cholecystectomy, Orthopedic Surgery, Uterine Ablation Additional Past Surgical History / Comment(s): CHOLECYSTECTOMY AND SMALL INTESTINE NICKED AND HAD ABDOMINAL SURGERY, ABDOMINOPLASTY, BUNIONECTOMY. Past Anesthesia/Blood Transfusion Reactions: Postoperative Nausea & Vomiting (PONV) Additional Past Anesthesia/Blood Transfusion Reaction / Comment(s): FIRST COLONOSCOPY SHE WAS AWARE OF WHAT WAS GOING ON." Smoking Status: Former smoker - Past Family History Mother Family Medical History: No Reported History Medications and Allergies Home Medications Medication Instructions Recorded Confirmed Type FLUoxetine HCL [PROzac] 20 mg PO HS 08/30/18 06/04/20 History Spironolactone 50 mg PO HS 06/06/19 06/04/20 History Omeprazole [PriLOSEC] 20 mg PO DAILY PRN 02/01/20 06/04/20 History Phentermine HCl [Adipex P] 3,705 mg PO AC-BRKFST 05/30/20 06/04/20 History diphenhydrAMINE [Benadryl] 25 mg PO HS PRN 05/30/20 06/04/20 History Allergies Allergy/AdvReac Type Severity Reaction Status Date / Time erythromycin base AdvReac Nausea & Verified 06/04/20 09:45 Vomiting Surgical - Exam Vital Signs Temp Pulse Resp BP Pulse Ox 97.4 F L 97 16 166/71 97 06/04/20 09:44 06/04/20 09:44 06/04/20 09:44 06/04/20 09:44 06/04/20 09:44 Physical exam: General: Well-developed, well-nourished HEENT: Normocephalic, sclerae nonicteric Abdomen: Nontender, nondistended Extremities: No edema Neuro: Alert and oriented Assessment and Plan (1) GERD (gastroesophageal reflux disease) Narrative/Plan: Will proceed with upper endoscopy Current Visit: Yes Status: Acute Code(s): K21.9 - GASTRO-ESOPHAGEAL REFLUX DISEASE WITHOUT ESOPHAGITIS SNOMED Code(s): 473361895
--- NOTE | 2020-06-04 10:14 | P.PCN ---
Date of Procedure: 06/04/20 Procedure(s) Performed: Preoperative Dx: GERD, presurgical Postoperative Dx: Gastritis, small hiatal hernia, early Schatzki's ring, mild distal esophagitis Procedure: EGD with Bx Anesthesia: Sedation Endoscopist: Dr. Cortés Specimens: Antrum, distal esophagus Endoscopic Procedure: The patient was on the endoscopy table in the left decubitus position. The Olympus gastroscope was inserted into the oropharynx and passed under direct visualization to the region of the third portion of the duodenum. From that point the scope was slowly withdrawn inspecting all surfaces carefully. There were no neoplastic inflammatory or polypoid lesions throughout the duodenum. The pylorus was widely patent. The stomach was carefully inspected. There was mild gastritis present. A biopsy of the antrum took place to rule out H. pylori. Retroflexion revealed a small hiatal hernia. The GE junction was present 1 cm above the diaphragmatic hiatus. There was slight stricture formation at the Z line consistent with a mild Schatzki's ring. There were 2 small linear erosions present above the Z line both measuring less than 1 cm. One of the 2 was biopsied. The remainder of the esophagus appear normal. The patient was then taken to the recovery room in stable condition per anesthesia guidelines. Recommendations: Await biopsies results. Begin antiacid therapy daily. Follow- up bariatric center 6 weeks.
[2020-06-04 10:36] VITALS: BP 120/83; PULSE 98; RESP 16
== END ==
LOC: ORWHC2ENDO 09:23
PROVIDERS: ATTEND Surgery
DX: K21.00 Gastro-esophageal reflux disease with esophagitis, without bleeding (principal); K22.2 Esophageal obstruction; K29.70 Gastritis, unspecified, without bleeding; K44.9 Diaphragmatic hernia without obstruction or gangrene; K22.10 Ulcer of esophagus without bleeding; G47.33 Obstructive sleep apnea (adult) (pediatric); M19.90 Unspecified osteoarthritis, unspecified site; G43.909 Migraine, unspecified, not intractable, without status migrainosus; G90.50 Complex regional pain syndrome I, unspecified; Z88.1 Allergy status to other antibiotic agents; Z79.899 Other long term (current) drug therapy; Z99.89 Dependence on other enabling machines and devices; Z90.49 Acquired absence of other specified parts of digestive tract; Z98.891 History of uterine scar from previous surgery; Z98.890 Other specified postprocedural states; Z87.891 Personal history of nicotine dependence
CPT/HCPCS: 81025; 88305; 43239; J2250; J2001; J2704

== ENCOUNTER 2020-07-01 01:14 | Emergency (ER) | payer BC ==
[2020-07-01 01:20] VITALS: BP 151/83; PULSE 99; RESP 19; TEMP 98.6
[2020-07-01] MEDS ORDERED: PROPARACAINE 0.5% OPHTH DROPS 15 ML BTL LEFT EYE STA (01:23)
[2020-07-01] MEDS ORDERED: FLUORESCEIN STRIPS 1 MG STRIP LEFT EYE STA (01:24)
--- NOTE | 2020-07-01 01:40 | ED ---
General Adult HPI - General Chief complaint: Eye Problems Stated complaint: Eye Problem Source: patient, RN notes reviewed Mode of arrival: ambulatory - History of Present Illness Initial comments: 49-year-old female with a past history of GERD, migraines, hiatal hernia presents to the emergency room for left eye pain. Patient states that she had some eye irritation earlier today when she had her contact in it started out around 5 PM. She says shortly afterwards started to burn. States it is now worsening. Patient denies visual changes but states it is painful to open her eye.Patient has no other complaints at this time including shortness of breath, chest pain, abdominal pain, nausea or vomiting, headache, or visual changes. - Related Data Home Medications Medication Instructions Recorded Confirmed FLUoxetine HCL [PROzac] 20 mg PO HS 08/30/18 06/04/20 Spironolactone 50 mg PO HS 06/06/19 06/04/20 Omeprazole [PriLOSEC] 20 mg PO DAILY PRN 02/01/20 06/04/20 Phentermine HCl [Adipex P] 3,705 mg PO AC-BRKFST 05/30/20 06/04/20 diphenhydrAMINE [Benadryl] 25 mg PO HS PRN 05/30/20 06/04/20 Previous Rx's Medication Instructions Recorded Ofloxacin 0.3% Ophth Soln [Ocuflox 1 - 2 drops BOTH EYES QID 7 Days 07/01/20 Ophth Soln] #15 ml Propylene Glycol/Peg 400/Pf 1 dropper BOTH EYES QID PRN #1 07/01/20 [Systane 0.3-0.4% Eye Drops] dropper Allergies Allergy/AdvReac Type Severity Reaction Status Date / Time erythromycin base AdvReac Nausea & Verified 07/01/20 01:20 Vomiting Review of Systems ROS Statement: Those systems with pertinent positive or pertinent negative responses have been documented in the HPI. ROS Other: All systems not noted in ROS Statement are negative. Past Medical History Past Medical History: GERD/Reflux, Osteoarthritis (OA), Sleep Apnea/CPAP/BIPAP Additional Past Medical History / Comment(s): RSD(REFLEX SYMPATHETIC DYSTROPHY). MIGRAINE HEADACHE, hital hernia History of Any Multi-Drug Resistant Organisms: None Reported Past Surgical History: Section, Cholecystectomy, Orthopedic Surgery, Uterine Ablation Additional Past Surgical History / Comment(s): CHOLECYSTECTOMY AND SMALL INTESTINE NICKED AND HAD ABDOMINAL SURGERY, ABDOMINOPLASTY, BUNIONECTOMY. Past Anesthesia/Blood Transfusion Reactions: Postoperative Nausea & Vomiting (PONV) Additional Past Anesthesia/Blood Transfusion Reaction / Comment(s): FIRST COLONOSCOPY SHE WAS AWARE OF WHAT WAS GOING ON." Past Psychological History: Anxiety, Depression Smoking Status: Former smoker Past Alcohol Use History: None Reported Past Drug Use History: None Reported - Past Family History Mother Family Medical History: No Reported History General Exam General appearance: alert Head exam: Present: atraumatic Eye exam: Present: PERRL, EOMI, conjunctival injection. Absent: scleral icterus, periorbital swelling, periorbital tenderness Expanded Eyelids: Normal Inspection: Bilateral Pupils: Regular, Round: Bilateral Sclera/Conjunctival: Injection: Left Visual acuity (R) = 20/: 30 Visual acuity (L) = 20/: 100 With correction: Yes IOP (R) in mmH IOP (L) in mmH IOP measured with: Tonopen ENT exam: Present: normal exam Neck exam: Present: normal inspection, full ROM Respiratory exam: Present: normal lung sounds bilaterally. Absent: respiratory distress Cardiovascular Exam: Present: regular rate, normal rhythm Neurological exam: Present: alert Course Vital Signs 07/01/20 01:16 Temperature 98.6 F Pulse Rate 99 Respiratory 19 Rate Blood Pressure 151/83 O2 Sat by Pulse 97 Oximetry Medical Decision Making - Medical Decision Making Vitals are stable. Patient does have conjunctival injection. Pupils are equal round and reactive to light. Patient does report contacts. Upon administration of proparacaine patient had complete resolution of symptoms. The eye was stained with fluorescein and visualized with the Wood's lamp. No evidence of ulcer. Possible small abrasion noted at 12:00. Patient was treated with ofloxacin given history of contacts. Visual acuity was done and is 20/30 OD, 20/100 OS. States her vision is blurry from the tearing but denies visual changes otherwise. At this time she'll be discharged home. She will be given ophthalmology consultation. She'll return here for any worsening symptoms. Case discussed with Dr Rogers Disposition Clinical Impression: Pain, eye, left Disposition: HOME SELF-CARE Condition: Good Instructions (If sedation given, give patient instructions): Corneal Abrasion (ED) Additional Instructions: Please use medication as directed. Do not use lubricating eyedrop within 20 minutes of administering antibiotic drop. Follow-up with ophthalmology tomorrow for an appointment. Return to the emergency room for any worsening symptoms. Prescriptions: Ofloxacin 0.3% Ophth Soln [Ocuflox Ophth Soln] 1 - 2 drops BOTH EYES QID 7 Days #15 ml Propylene Glycol/Peg 400/Pf [Systane 0.3-0.4% Eye Drops] 1 dropper BOTH EYES QID PRN #1 dropper PRN Reason: Pain Is patient prescribed a controlled substance at d/c from ED?: No Referrals: Shameka Cortés MD [Primary Care Provider] - 1-2 days Wil Robertson MD [STAFF PHYSICIAN] - 1-2 days Time of Disposition: 02:14
[2020-07-01] MEDS ORDERED: DIPH,PERTUS(ACELL)TETVAC-LF 0.5 ML VIAL IM ONE (01:56)
[2020-07-01] MEDS ORDERED: OFLOXACIN 0.3% OPHTH DROPS 5 ML BOTTLE LEFT EYE ONE (02:00)
== END 2020-07-01 02:35 | disposition home or self-care (01) ==
LOC: EC 01:14
DX: H57.12 Ocular pain, left eye (principal); F32.9 Major depressive disorder, single episode, unspecified; F41.9 Anxiety disorder, unspecified; G47.33 Obstructive sleep apnea (adult) (pediatric); K21.9 Gastro-esophageal reflux disease without esophagitis; Z88.1 Allergy status to other antibiotic agents; Z23 Encounter for immunization; Z90.49 Acquired absence of other specified parts of digestive tract; Z87.891 Personal history of nicotine dependence
CPT/HCPCS: 90471; 90715; 99283

== ENCOUNTER → 2020-07-10 | Outpatient (CLI) | payer BC ==
--- NOTE | 2020-07-10 14:13 | CONS ---
CONSULTATION DATE OF SERVICE: 07/10/2020 This 49-year-old lady has been evaluated in the sleep center for possible obstructive sleep apnea-hypopnea syndrome. HISTORY OF PRESENT ILLNESS/SLEEP-WAKE EVALUATION: Patient usual sleep schedule from 11 p.m. to 7:25 a.m. on weekdays and from midnight until 12 noon on weekends. It takes more than 30 minutes for her to fall asleep and she has TV set in bedroom. She usually sleeps on the side and back position with loud snoring and awakenings from sleep 3 times with episodes of nocturia, heartburn, sweating and grinding teeth. In the morning, patient wakes up tired, has episodes of irritability, depression, anxiety. [place] Sleepiness Scale increased to 11. PAST MEDICAL HISTORY: Positive for arthritis, acid reflux, acne, affective disorder, depression, cholecystectomy, . MEDICATIONS: Phentermine 37.5 mg once a day, omeprazole 20 mg once a day, spironolactone 50 mg once a day, fluoxetine 20 mg once a day. The patient may take out of the counter sleeping aid at bedtime. SOCIAL HISTORY: Negative for smoking. Alcohol consumption occasional. FAMILY HISTORY: Hypertension, heart problems, hyperlipidemia, diabetes, restless legs. REVIEW OF SYSTEMS: Awakenings from sleep, snoring, sleepiness during the day. PHYSICAL EXAMINATION: GENERAL: lady without distress. VITAL SIGNS: BP 141/81, HR 93, RR 15, height 5 feet 7-3/4 inches, weight 257 pounds, BMI 39.4, temperature 98.1, oxygen saturation at room air 98%. HEENT: PERRLA, EOMI. Oropharynx low position of soft palate. Mallampati 3. NECK: Wide neck is 17 inches in circumference. LUNGS: Clear to percussion and to auscultation. Good air exchange. No wheezing or rhonchi. HEART: S1, S2 regular. No murmurs, gallops, or rubs. ABDOMEN: Obese. EXTREMITIES: No clubbing or cyanosis. JOINERY SETTER OUT: Awake, alert, and oriented X3. Cranial nerves 2 to 7 intact. There is no fasciculation or atrophy. noted. No focal deficits observed. IMPRESSION: 1. Loud snoring, multiple awakenings from sleep, low position of soft palate, wide neck is 17 inches in circumference, sleepiness, [place] Sleepiness Scale is 11, obstructive sleep apnea-hypopnea syndrome. 2. Obesity, body mass index 39.4. 3. History of arthritis. 4. Acid reflux. 5. History of acne. 6. History of affective disorder and depression. 7. Status post cholecystectomy. 8. Status post . PLAN: 1. Home sleep apnea test for evaluation of patient's breathing during sleep. 2. Sleep hygiene with regular time in bed for at least 7-1/2 to 8 hours. 3. No driving if feeling sleepiness. 4. Losing weight. 5. Following plan after reviewing sleep study. Thank you very much for referring this patient for consultation. Sincerely, Ken Alarcon MD, PhD, FAASM Diplomat of [employer] [facility] Occupational Therapist of [facility] [place] MMODL / KARLIN: [phone] /
== END | disposition home or self-care (01) ==
LOC: SLEEP 11:45
PROVIDERS: ATTEND Internal Medicine
DX: G47.33 Obstructive sleep apnea (adult) (pediatric) (principal); E66.9 Obesity, unspecified; K21.9 Gastro-esophageal reflux disease without esophagitis; Z68.39 Body mass index [BMI] 39.0-39.9, adult; Z90.49 Acquired absence of other specified parts of digestive tract; Z86.59 Personal history of other mental and behavioral disorders; Z79.899 Other long term (current) drug therapy; Z79.891 Long term (current) use of opiate analgesic; Z87.39 Personal history of other diseases of the musculoskeletal system and connective tissue; Z87.2 Personal history of diseases of the skin and subcutaneous tissue
CPT/HCPCS: 99211

== ENCOUNTER → 2020-07-16 | Outpatient (CLI) | payer BC ==
[2020-07-16 13:48] VITALS: BP 127/79; PULSE 106; RESP 16; TEMP 98.1; BMI 39.4
--- NOTE | 2020-07-16 16:27 | P.BASOAP ---
Subjective Progress Note Date: 07/16/20 Principal diagnosis: Morbid obesity Patient returns for recheck. Underwent upper endoscopy one month ago. Patient was found have gastritis, small hiatal hernia, distal esophagitis, Schatzki's ring. Patient having a sleep study later this week. Patient has considered gastric bypass given her history of mild reflux and endoscopic findings but remains committed to sleeve gastrectomy. Objective - Vital Signs Vital signs: Vital Signs Temp 98.1 F 07/16/20 13:44 Pulse 106 H 07/16/20 13:44 Resp 16 07/16/20 13:44 BP 127/79 07/16/20 13:44 Pulse Ox Intake & Output 07/15/20 07/16/20 07/16/20 18:59 06:59 18:59 Weight 116.12 kg - Exam Abdomen: Soft, nontender, nondistended Assessment/Plan (1) Obesity (BMI 30-39.9) Narrative/Plan: Clinical scenario discussed with patient once again. Increased risk of postoperative acid reflux and regurgitation discussed with patient. She despite that does not want to pursue gastric bypass given the comorbidities. Will tentatively plan sleeve gastrectomy in the next 1-2 months. The risks of bleeding, infection, stenosis, stricture, leak, abscess, fistula formation, peritonitis, poor weight loss, reflux, vomiting, conversion to an open procedure, aborting sleeve gastrectomy, CA, PE, DVT, and were discussed. The patient understands and wishes to proceed. Plan: Date: 07/16/20 Initial Weight: 113.653 kg Initial BMI: 38.6 Current Weight: 116.12 kg Current BMI: 39.4 Type of Surgery: Total Volume in Band: Previous Volume: Volume Removed: Volume Added: Band Size:
== END | disposition home or self-care (01) ==
LOC: BARWHC3 13:22
PROVIDERS: ATTEND Surgery
DX: E66.9 Obesity, unspecified (principal); Z68.30 Body mass index [BMI] 30.0-30.9, adult
CPT/HCPCS: 99211

== ENCOUNTER → 2020-07-29 | Outpatient (CLI) | payer BC ==
[2020-07-29 14:06] VITALS: BMI 40.0
== END | disposition home or self-care (01) ==
LOC: BARWHC3 08:47
PROVIDERS: ATTEND Surgery
DX: E66.01 Morbid (severe) obesity due to excess calories (principal); Z71.3 Dietary counseling and surveillance; Z68.41 Body mass index [BMI] 40.0-44.9, adult
CPT/HCPCS: 97804

== ENCOUNTER 2020-08-12 10:16 | Inpatient (IN) | payer BC ==
--- NOTE | 2020-08-12 09:08 | P.GSHP ---
History of Present Illness H&P Date: 08/12/20 Chief Complaint: Morbid obesity 49-year-old female here today for elective sleeve gastrectomy. Patient first seen for weight loss intervention in January of last year. Patient with comorbidities including obstructive sleep apnea and GERD. Patient underwent EGD showing Schatzki's ring, esophagitis, small hiatal hernia. Patient remains interested in sleeve gastrectomy. No history of DVT or dysphagia. No tobacco use. History of previous laparotomy for peritonitis after previous laparoscopic cholecystectomy in 2009. Past Medical History Past Medical History: GERD/Reflux, Osteoarthritis (OA), Sleep Apnea/CPAP/BIPAP Additional Past Medical History / Comment(s): RSD(REFLEX SYMPATHETIC DYSTROPHY). MIGRAINE HEADACHE, hiatal hernia History of Any Multi-Drug Resistant Organisms: None Reported Past Surgical History: Section, Cholecystectomy, Orthopedic Surgery, Uterine Ablation Additional Past Surgical History / Comment(s): CHOLECYSTECTOMY AND SMALL INTESTINE NICKED AND HAD ABDOMINAL SURGERY, ABDOMINOPLASTY, BUNIONECTOMY. Past Anesthesia/Blood Transfusion Reactions: Postoperative Nausea & Vomiting (PONV) Additional Past Anesthesia/Blood Transfusion Reaction / Comment(s): FIRST COLONOSCOPY SHE WAS AWARE OF WHAT WAS GOING ON." Smoking Status: Former smoker - Past Family History Mother Family Medical History: No Reported History Medications and Allergies Home Medications Medication Instructions Recorded Confirmed Type FLUoxetine HCL [PROzac] 20 mg PO HS 08/30/18 08/08/20 History Spironolactone 50 mg PO HS 06/06/19 08/08/20 History Omeprazole [PriLOSEC] 20 mg PO DAILY PRN 02/01/20 08/08/20 History diphenhydrAMINE [Benadryl] 25 mg PO HS PRN 05/30/20 08/08/20 History Allergies Allergy/AdvReac Type Severity Reaction Status Date / Time erythromycin base AdvReac Nausea & Verified 08/08/20 13:13 Vomiting Surgical - Exam Physical exam: General: Well-developed, well-nourished HEENT: Normocephalic, sclerae nonicteric Abdomen: Nontender, nondistended, large midline incision Extremities: No edema Neuro: Alert and oriented Assessment and Plan (1) Obesity (BMI 30-39.9) Narrative/Plan: 49-year-old female with obesity and comorbidities. We'll proceed with laparoscopic sleeve gastrectomy at this time. The risks of bleeding, infection, stenosis, stricture, leak, abscess, fistula formation, peritonitis, poor weight loss, worsening reflux, vomiting, conversion to an open procedure, aborting sleeve gastrectomy, [place], PE, DVT, and were discussed. The patient understands and wishes to proceed. Status: Acute Code(s): E66.9 - OBESITY, UNSPECIFIED SNOMED Code(s): 526852153
[~2020-08-12 10:16] MED LIST changes: +DEXAMETHASONE SOD PHOSPHATE 4 MG/ML 1 ML VIAL IV ONE; +ENOXAPARIN 40 MG/0.4 ML SYRINGE SQ PRN; -GLYCOPYRROLATE 0.2 MG/ML 2 ML VIAL ONE; -LACTATED RINGERS 1,000 ML IV SCH; -LIDOCAINE 1% INJ 10MG/ML (20 ML MDV) ONE; -MIDAZOLAM 2 MG/2 ML VIAL ONE; +ONDANSETRON 4 MG/2 ML VIAL IVP ONE; -PROPOFOL 10 MG/ML 20 ML VIAL IV ONE; +SCOPOLAMINE 1.5MG/72HR PATCH TRANSDERM ONE
[2020-08-12] MEDS: LACTATED RINGERS 1,000 ML IV SCH (10:40)
[2020-08-12 11:01] LABS: Basophils # (A) 0.1 k/uL (0-0.2); Basophils % (A) 1 %; Eosinophils # (A) 0.3 k/uL (0-0.7); Eosinophils % (A) 3 %; HCT 42.8 % (34.0-46.0); HGB 14.4 gm/dL (11.4-16.0); Lymphocytes % (A) 20 %; MCH 27.8 pg (25.0-35.0); MCHC 33.7 g/dL (31.0-37.0); MCV 82.4 fL (80.0-100.0); Mean Platelet Volume 7.8; Monocytes # (A) 0.4 k/uL (0-1.0); Monocytes % (A) 4 %; Neutrophils % (A) 71 %; Platelet Count 302 k/uL (150-450); WBC 9.8 k/uL (3.8-10.6)
[2020-08-12 11:10] LABS: ALT 86 U/L (4-34); AST 70 U/L (14-36); African American GFR (CKD) >90 (>60 ml/min/1.73 sqM); Albumin 4.8 g/dL (3.5-5.0); Alkaline Phosphatase 102 U/L (38-126); Anion Gap 15 mmol/L; Blood Urea Nitrogen 15 mg/dL (7-17); Calcium 9.9 mg/dL (8.4-10.2); Carbon Dioxide 20 mmol/L (22-30); Chloride 101 mmol/L (98-107); Glucose 101 mg/dL (74-99); Non-African American GFR(CKD) 88 (>60 ml/min/1.73 sqM); Potassium 4.4 mmol/L (3.5-5.1); Sodium 136 mmol/L (137-145); Total Bilirubin 0.5 mg/dL (0.2-1.3); Total Protein 8.3 g/dL (6.3-8.2)
[2020-08-12] MEDS ORDERED: MIDAZOLAM 2 MG/2 ML VIAL ONE (13:51)
[2020-08-12] MEDS ORDERED: NEOSTIGMINE 1 MG/ML 10 ML VIAL ONE (13:51)
[2020-08-12] MEDS ORDERED: GLYCOPYRROLATE 0.2 MG/ML 2 ML VIAL ONE (13:51)
[2020-08-12] MEDS ORDERED: ROCURONIUM 10 MG/ML (5 ML VIAL) IV ONE (13:51)
[2020-08-12] MEDS ORDERED: fentaNYL (PF) 50 MCG/ML 2 ML AMP ONE (13:51)
[2020-08-12] MEDS ORDERED: SUCCINYLCHOLINE CHLORIDE 100 MG/5 ML SYR IV ONE (13:51)
[2020-08-12] MEDS ORDERED: LIDOCAINE 1% INJ 10MG/ML (20 ML MDV) ONE (13:51)
[2020-08-12] MEDS ORDERED: PROPOFOL 10 MG/ML 20 ML VIAL IV ONE (13:51)
[2020-08-12] MEDS ORDERED: BUPIVACAINE (PF) 0.25% 30 ML VIAL SQ ONE ×2 (14:27→16:28)
[2020-08-12] MEDS ORDERED: METHYLENE BLUE 3 MG in DEXTROSE 5% IN WATER 500 ML IRRIGATION ONE ×2 (14:46)
[2020-08-12] MEDS ORDERED: SIMETHICONE 40 MG/0.6 ML DROPS 2,000 MG/30 ML BOTTLE PO PRN (16:44)
[2020-08-12] MEDS ORDERED: diphenhydrAMINE 50 MG/ML 1 ML VIAL IVP PRN (16:44)
[2020-08-12] MEDS ORDERED: NALOXONE 0.4 MG/ML 1 ML VIAL IV PRN (16:44)
--- NOTE | 2020-08-12 16:51 | P.OP ---
Date of Procedure: 08/12/20 Procedure(s) Performed: PREOPERATIVE DIAGNOSIS: Morbid obesity, GERD, obstructive sleep apnea, hiatal hernia POSTOPERATIVE DIAGNOSIS: Same, intra-abdominal adhesions PROCEDURE: Laparoscopic sleeve gastrectomy with repair hiatal hernia, laparoscopic lysis of adhesions SURGEON: Milana EBL: Minimal ANESTHESIA: General COMPLICATIONS: None OPERATIVE PROCEDURE: Patient was placed in the operating table in the supine position. She was placed under general anesthesia at that time. The abdomen was prepped and draped in sterile fashion after the patient was placed in lithotomy. A 5 mm optical trocar was used to enter the abdominal cavity in the left upper quadrant. Insufflation took place to 15 millimeters mercury. A 5 mm right upper quadrant trocar was placed under direct visualization. The patient was noted to have extensive abdominal adhesions between the omentum and the abdominal wall diffusely. Thankfully our initial site was free of any adhesions. I was able to place an additional 5 mm right lower quadrant trocar under direct visualization. Using our 2 lateral 5 mm trocar incisions lysis of adhesions took place using both blunt dissection sharp dissection and the LigaSure device. Once I had the abdominal wall exposed and additional 15 mm trocar was placed in the infraumbilical location and a 5 mm trocar in the left lateral upper quadrant, and a right subxiphoid 5 mm trocar. The liver was retracted using a medium Raina liver retractor through the right subxiphoid trocar site. The hiatus was inspected. The patient had a small sized hiatal hernia. Circumferentially the phrenoesophageal ligament was incised identifying the actual defect. The right diaphragmatic crura was well visualized. I was able to bluntly dissect and visualize the left diaphragmatic crura. At that point I moved to the mid aspect of the greater curvature the stomach. The short gastric vasculature was divided using a LigaSure device proximally. I then switched and divided the short gastrics distally to a 3-4 cm from the pylorus. The dissection took place up to the left diaphragmatic crura at that point. The posterior short gastrics were likewise divided using the LigaSure device. Once the stomach was fully mobilized the blunt tipped 40-[place] bougie dilator was advanced into the stomach and advanced all the way to the prepyloric location. A black echelon 60 stapler with Ethicon staple line reinforcement was utilized and fired tangentially across the antrum taking care to avoid narrowing at the incisura angularis. Subsequent firings of the stapler took place. A total of 5 green echelon 60 staplers with staple line reinforcement took place proximally staying on the outer edge of our dilator. The oral gastric tube was reinserted. The stomach was insufflated with approximately 100 mL of methylene blue. No evidence of leak or obstruction was seen. The hiatus was then addressed once again. A single 2-0 Ethibond suture was used to reapproximate the crura posteriorly. This adequately closed the diaphragmatic hernia. The staple line was inspected. There were 2 or 3 small areas of oozing along the staple line controlled using the clip bundling machine operator. Tisseel fibrin glue was then sprayed along the entire length of the staple line. No bleeding was identified. The stomach remnant was removed from the 15 mm trocar site without difficulty. The fascia at the 15 more site was closed using interrupted 0 Vicryl sutures with the laparoscopic suture passer and Sulaiman Blanca technique. The insufflation was evacuated. The skin at all 6 incisions were closed using 4-0 Monocryl sutures. Skin glue was then applied. DISPOSITION: Stable to recovery room
[2020-08-12] MEDS: HYDROmorphone 0.5 MG/0.5 ML SYRINGE IVP PRN ×6 (16:59→17:27)
[2020-08-12] MEDS ORDERED: ONDANSETRON 4 MG/2 ML VIAL IVP ONE (17:13)
[2020-08-12] MEDS ORDERED: LACTATED RINGERS 1,000 ML IV ONE (17:21)
[2020-08-12] MEDS ORDERED: ACETAMINOPHEN IV (For NPO) 1,000 MG in EMPTY BAG 1 BAG IVPB ONE (18:00)
[2020-08-12] MEDS: HYDROmorphone 1 MG/ML 1 ML SYRINGE IVP PRN ×2 (19:29→22:22)
[2020-08-12] MEDS: ONDANSETRON 4 MG/2 ML VIAL IVP PRN (19:30)
[2020-08-12] MEDS: ALBUTEROL NEBULIZED 2.5 MG/3 ML INHALATION SCH (21:13)
[2020-08-12] MEDS: 0.9% NACL WITH KCL 20 MEQ/L 1,000 ML IV SCH (21:37)
[2020-08-13] MEDS: HYDROmorphone 1 MG/ML 1 ML SYRINGE IVP PRN ×5 (01:25→16:14)
[2020-08-13] MEDS: 0.9% NACL WITH KCL 20 MEQ/L 1,000 ML IV SCH (02:22)
[2020-08-13] MEDS: LACTATED RINGERS 1,000 ML IV SCH (02:23)
[2020-08-13] MEDS: ONDANSETRON 4 MG/2 ML VIAL IVP PRN ×3 (05:05→20:09)
[2020-08-13] MEDS: PANTOPRAZOLE 40 MG/10 ML VIAL IV SCH (07:40)
[2020-08-13] MEDS: ENOXAPARIN 40 MG/0.4 ML SYRINGE SQ SCH ×2 (07:42→20:06)
[2020-08-13] MEDS ORDERED: 1: MVI, ADULT NO.4 WITH VIT K 10 ML, THIAMINE 100 MG, FOLIC ACID 1 MG, POTASSIUM CHLORID IV SCH ×6 (08:00)
--- NOTE | 2020-08-13 09:14 | FL ---
EXAMINATION TYPE: FL UGI DATE OF EXAM: 08/13/2020 COMPARISON: NONE HISTORY: Postop bariatric surgery TECHNIQUE: A single contrast UGI study is performed. FINDINGS: 33 seconds fluoroscopy time, 4 intraoperative images. Patient was given water soluble contrast to drink. Contrast material courses across the surgical bed. Narrow column of contrast is noted. No evident leak. IMPRESSION: Postop changes without leak. Contrast courses into the proximal small bowel.
[2020-08-13] MEDS: ALBUTEROL NEBULIZED 2.5 MG/3 ML INHALATION SCH ×4 (09:25→19:20)
[2020-08-13 11:21] VITALS: BMI 37.5
[2020-08-13 11:23] LABS: Basophils # (A) 0.04 X 10*3/uL (0.00-0.10); Basophils % (A) 0.2 %; Eosinophils # (A) 0 X 10*3/uL (0.04-0.35); Eosinophils % (A) 0 %; HCT 39.5 % (37.2-46.3); HGB 12.1 g/dL (12.0-15.0); Lymphocytes # (A) 1.19 X 10*3/uL (0.90-5.00); Lymphocytes % (A) 6.5 %; MCH 27.8 pg (27.0-32.0); MCHC 30.6 g/dL (32.0-37.0); MCV 90.8 fL (80.0-97.0); Mean Platelet Volume 11.1 fL (9.5-12.2); Monocytes # (A) 0.79 X 10*3/uL (0.20-1.00); Monocytes % (A) 4.3 %; Neutrophils # (A) 16.33 X 10*3/uL (1.80-7.70); Neutrophils % (A) 88.6 %; Platelet Count 255 X 10*3/uL (140-440); RBC 4.35 X 10*6/uL (4.10-5.20); RDW 12.3 % (11.5-14.5); WBC 18.43 X 10*3/uL (4.50-10.00)
[2020-08-13 11:41] LABS: African American GFR (CKD) 101.8 (60.0-200.0); Anion Gap 8.2 mmol/L (4.00-12.00); Calcium 8.4 mg/dL (8.7-10.3); Carbon Dioxide 25.8 mmol/L (21.6-31.8); Magnesium 1.9 mg/dL (1.5-2.4); Non-African American GFR(CKD) 87.8 (60.0-200.0); Phosphorus 3.3 mg/dL (2.4-5.1)
--- NOTE | 2020-08-13 12:49 | P.CONS ---
History of Present Illness - Reason for Consult Leukocytosis - History of Present Illness Patient is a pleasant 49-year-old female admitted for elective sleeve gastrectomy. Patient did not pass gas yet patient is having good bowel sounds patient is being started on clear liquid diet at this time. Patient does have history of Schatzki's ring gastroesophageal reflux disease. Patient is clinically doing well denied any fever chills. Patient denied dysuria denied any dysphagia denied any cough. Review of Systems REVIEW OF SYSTEMS: CONSTITUTIONAL: No fever, no malaise, no fatigue. HEENT: No recent visual problems or hearing problems. Denied any sore throat. CARDIOVASCULAR: No chest pain, orthopnea, PND, no palpitations, no syncope. PULMONARY: No shortness of breath, no cough, no hemoptysis. GASTROINTESTINAL: No diarrhea, no nausea, no vomiting, no abdominal pain. NEUROLOGICAL: No headaches, no weakness, no numbness. HEMATOLOGICAL: Denies any bleeding or petechiae. GENITOURINARY: Denies any burning micturition, frequency, or urgency. MUSCULOSKELETAL/RHEUMATOLOGICAL: Denies any joint pain, swelling, or any muscle pain. ENDOCRINE: Denies any polyuria or polydipsia. The rest of the 14-point review of systems is negative. Past Medical History Past Medical History: GERD/Reflux, Osteoarthritis (OA), Sleep Apnea/CPAP/BIPAP Additional Past Medical History / Comment(s): RSD(REFLEX SYMPATHETIC DYSTROPHY). MIGRAINE HEADACHE, hiatal hernia History of Any Multi-Drug Resistant Organisms: None Reported Past Surgical History: Section, Cholecystectomy, Orthopedic Surgery, Uterine Ablation Additional Past Surgical History / Comment(s): CHOLECYSTECTOMY AND SMALL INTESTINE NICKED AND HAD ABDOMINAL SURGERY, ABDOMINOPLASTY, BUNIONECTOMY. Past Anesthesia/Blood Transfusion Reactions: Postoperative Nausea & Vomiting (PONV) Additional Past Anesthesia/Blood Transfusion Reaction / Comm: FIRST COLONOSCOPY SHE WAS AWARE OF WHAT WAS GOING ON." Past Psychological History: Anxiety, Depression Smoking Status: Former smoker Past Alcohol Use History: None Reported Additional Past Alcohol Use History / Comment(s): STARTED SMOKING AT AGE 20 QUIT SMOKING in 2002, SMOKED 1PPD OR LESS Past Drug Use History: None Reported - Past Family History Mother Family Medical History: No Reported History Medications and Allergies Home Medications Medication Instructions Recorded Confirmed Type FLUoxetine HCL [PROzac] 20 mg PO HS 08/30/18 08/12/20 History Spironolactone 50 mg PO HS 06/06/19 08/12/20 History Omeprazole [PriLOSEC] 20 mg PO DAILY PRN MDD 2 02/01/20 08/12/20 History diphenhydrAMINE [Benadryl] 25 mg PO HS PRN 05/30/20 08/12/20 History Allergies Allergy/AdvReac Type Severity Reaction Status Date / Time erythromycin base AdvReac Nausea & Verified 08/12/20 10:36 Vomiting Physical Exam Vitals: Vital Signs Temp Pulse Pulse Resp BP Pulse Ox 08/13/20 12:29 79 08/13/20 12:21 77 08/13/20 09:39 90 08/13/20 09:30 90 L 08/13/20 09:28 89 08/13/20 09:09 16 08/13/20 07:00 98.2 F 93 16 113/74 97 08/13/20 03:00 98.1 F 85 16 130/75 97 08/12/20 22:34 95 08/12/20 22:16 91 14 08/12/20 21:38 103 H 116/76 90 L 08/12/20 21:08 91 109/72 86 L 08/12/20 20:38 92 111/73 89 L 08/12/20 20:23 95 106/70 86 L 08/12/20 20:08 98 103/66 77 L 08/12/20 19:53 97 104/69 80 L 08/12/20 19:38 93 108/72 83 L 08/12/20 19:23 89 121/79 88 L 08/12/20 19:08 92 126/80 89 L 08/12/20 18:53 87 129/87 93 L 08/12/20 18:35 98.1 F 89 131/81 97 08/12/20 17:45 91 14 138/68 99 08/12/20 17:30 91 16 133/65 99 08/12/20 17:15 84 16 129/63 100 08/12/20 17:00 90 14 125/61 94 L 08/12/20 16:45 88 16 133/67 97 08/12/20 16:44 98.1 F 90 16 131/81 96 08/12/20 16:42 97.1 F L 88 12 129/63 95 Intake and Output 08/12/20 08/13/20 08/13/20 22:59 06:59 14:59 Intake Total 200 1800 Output Total 25 Balance 175 1800 Intake: IV 200 Intake, IV Titration 1800 Amount 0.9% NaCl with KCl 20 Meq 1800 /l 1,000 ml @ 150 mls/hr IV .Q6H40M [facility] Rx#: [id number] Output: Estimated Blood Loss 25 Other: Voiding Method Toilet Toilet # Voids 2 Weight 112 kg 112 kg PHYSICAL EXAMINATION: GENERAL: The patient is alert and oriented x3, not in any acute distress. Obese HEENT: Pupils are round and equally reacting to light. EOMI. No scleral icterus. No conjunctival pallor. Normocephalic, atraumatic. No pharyngeal erythema. No thyromegaly. CARDIOVASCULAR: S1 and S2 present. No murmurs, rubs, or gallops. PULMONARY: Chest is clear to auscultation, no wheezing or crackles. ABDOMEN: Soft, nontender, nondistended, normoactive bowel sounds. No palpable organomegaly. MUSCULOSKELETAL: No joint swelling or deformity. EXTREMITIES: No cyanosis, clubbing, or pedal edema. NEUROLOGICAL: Gross neurological examination did not reveal any focal deficits. SKIN: No rashes. Results CBC & Chem 7: 08/13/20 06:21 08/13/20 06:21 Labs: Abnormal Lab Results - Last 24 Hours (Table) 08/13/20 08/13/20 Range/Units 06:21 06:21 WBC 18.43 H (4.50-10.00) X 10*3/uL MCHC 30.6 L (32.0-37.0) g/dL Immature Gran # 0.08 H (0.00-0.04) X 10*3/uL Neutrophils # 16.33 H (1.80-7.70) X 10*3/uL Eosinophils # 0 L (0.04-0.35) X 10*3/uL Calcium 8.4 L (8.7-10.3) mg/dL Assessment and Plan Plan: -Leukocytosis: Reactive secondary to surgery surgery patient doesn't have any signs or symptoms of sepsis at this time will not require any further intervention -Gastroesophageal reflux disease for which patient is on Protonix to be continued -Obstructive sleep apnea, obesity patient underwent sleeve gastrectomy -Osteoarthritis -Depression patient was resumed home medications for this. -DVT prophylaxis per primary service
--- NOTE | 2020-08-13 13:16 | P.PN ---
<Jess Padron - Last Filed: 08/13/20 13:09> Subjective Progress Note Date: 08/13/20 CHIEF COMPLAINT: Morbid obesity HISTORY OF PRESENT ILLNESS: Patient is status post Laparoscopic sleeve gastrectomy with repair hiatal hernia, laparoscopic lysis of adhesions. She is postop day #1. She is complaining of nausea, but it is controlled with Zofran. She reports that her pain is controlled. She has been having some belching. She denies any flatus or BM. She has been up and ambulating in the hallway. She denies any difficulty or burning with urination. She denies any cough. Afebrile. WBC increased at 18.43. WBC possible elevated due to steroids. Hgb 12.1 potassium 5.0 creatinine 0.8 Upper GI shows postop changes without leak. Contras courses into the proximal small bowel. PHYSICAL EXAM: VITAL SIGNS: Reviewed. GENERAL: Well-developed in no acute distress. HEENT: No sclera icterus. Extraocular movements grossly intact. Moist buccal mucosa. Head is atraumatic, normocephalic. ABDOMEN: Soft. Nondistended. Incision sites clean dry and intact NEUROLOGIC: Alert and oriented. Cranial nerves II through XII grossly intact. ASSESSMENT: 1. Morbid obesity and hiatal hernia status post Laparoscopic sleeve gastrectomy with repair hiatal hernia, laparoscopic lysis of adhesions 2. GERD 3. Obstructive sleep apnea 4. Leukocytosis probably steroid induced. We'll monitor PLAN: -Continue bariatric clear liquid diet -Continue pain medication as needed -Continue Zofran as needed for nausea -Encourage patient to ambulate -Encourage patient to use incentive spirometer -Remove potassium from fluids -Repeat CBC in a.m. Physician Research Phlebotomist note has been reviewed by physician. Signing provider agrees with the documented findings, assessment, and plan of care. Objective - Vital Signs Vital signs: Vital Signs Temp 98.2 F 08/13/20 07:00 Pulse 79 08/13/20 12:29 Resp 16 08/13/20 09:09 BP 113/74 08/13/20 07:00 Pulse Ox 90 L 08/13/20 09:30 Intake & Output 08/12/20 08/13/20 08/13/20 18:59 06:59 18:59 Intake Total 2050 1800 Output Total 25 Balance 2025 1800 Weight 112 kg 112 kg Intake: IV 2050 Intake, IV Titration 1800 Amount 0.9% NaCl with KCl 20 Meq 1800 /l 1,000 ml @ 150 mls/hr IV .Q6H40M [facility] Rx#: [id number] Output: Estimated Blood Loss 25 Other: Voiding Method Toilet Toilet # Voids 2 - Labs CBC & Chem 7: 08/13/20 06:21 08/13/20 06:21 Labs: Abnormal Lab Results - Last 24 Hours (Table) 08/13/20 08/13/20 Range/Units 06:21 06:21 WBC 18.43 H (4.50-10.00) X 10*3/uL MCHC 30.6 L (32.0-37.0) g/dL Immature Gran # 0.08 H (0.00-0.04) X 10*3/uL Neutrophils # 16.33 H (1.80-7.70) X 10*3/uL Eosinophils # 0 L (0.04-0.35) X 10*3/uL Calcium 8.4 L (8.7-10.3) mg/dL <Gallito Cortés - Last Filed: 08/13/20 19:02> Subjective Patient doing well today. Mild nausea after starting bariatric liquids. Upper GI shows no evidence of leak or obstruction. White blood cell count elevated. Continue bariatric liquids. Reevaluate for possible discharge tomorrow. Objective - Vital Signs Vital signs: Vital Signs Temp 98.3 F 08/13/20 14:00 Pulse 87 08/13/20 14:00 Resp 16 08/13/20 14:00 BP 110/71 08/13/20 14:00 Pulse Ox 90 L 08/13/20 14:00 Intake & Output 08/13/20 08/13/20 08/14/20 06:59 18:59 06:59 Intake Total 1800 Balance 1800 Weight 112 kg Intake: Intake, IV Titration 1800 Amount 0.9% NaCl with KCl 20 Meq 1800 /l 1,000 ml @ 150 mls/hr IV .Q6H40M [facility] Rx#: [id number] Other: Voiding Method Toilet Toilet # Voids 2 - Labs CBC & Chem 7: 08/13/20 06:21 08/13/20 06:21 Labs: Abnormal Lab Results - Last 24 Hours (Table) 08/13/20 08/13/20 Range/Units 06:21 06:21 WBC 18.43 H (4.50-10.00) X 10*3/uL MCHC 30.6 L (32.0-37.0) g/dL Immature Gran # 0.08 H (0.00-0.04) X 10*3/uL Neutrophils # 16.33 H (1.80-7.70) X 10*3/uL Eosinophils # 0 L (0.04-0.35) X 10*3/uL Calcium 8.4 L (8.7-10.3) mg/dL Assessment and Plan (1) Obesity (BMI 30-39.9) Current Visit: No Status: Acute Code(s): E66.9 - OBESITY, UNSPECIFIED SNOMED Code(s): 270486550
[2020-08-13] MEDS: 1: MVI, ADULT NO.4 WITH VIT K 10 ML, THIAMINE 100 MG, FOLIC ACID 1 MG in SODIUM CHLORIDE IV SCH ×4 (14:38)
[2020-08-13] MEDS: HYOSCYAMINE ORAL DROPS 1.875 MG/15 ML BOTTLE PO PRN (17:23)
[2020-08-13] MEDS: KETOROLAC 15 MG/ML 1 ML VIAL IVP SCH (20:06)
[2020-08-13] MEDS: FLUoxetine HCL 20 MG CAP PO SCH (20:07)
[2020-08-14] MEDS: KETOROLAC 15 MG/ML 1 ML VIAL IVP SCH ×5 (00:02→23:37)
[2020-08-14] MEDS: 1: MVI, ADULT NO.4 WITH VIT K 10 ML, THIAMINE 100 MG, FOLIC ACID 1 MG in SODIUM CHLORIDE IV SCH ×12 (00:02→21:02)
[2020-08-14] MEDS: LACTATED RINGERS 1,000 ML IV SCH (00:46)
[2020-08-14] MEDS: ONDANSETRON 4 MG/2 ML VIAL IVP PRN ×2 (04:45→15:35)
[2020-08-14] MEDS: HYDROmorphone 1 MG/ML 1 ML SYRINGE IVP PRN (04:45)
[2020-08-14] MEDS ORDERED: bisacodyL 5 MG TABLET.DR PO PRN (08:00)
[2020-08-14] MEDS: ALBUTEROL NEBULIZED 2.5 MG/3 ML INHALATION SCH ×4 (08:04→19:06)
[2020-08-14] MEDS: PANTOPRAZOLE 40 MG/10 ML VIAL IV SCH (08:25)
[2020-08-14] MEDS: ENOXAPARIN 40 MG/0.4 ML SYRINGE SQ SCH ×2 (08:26→19:16)
[2020-08-14 10:55] LABS: Basophils # (A) 0.04 X 10*3/uL (0.00-0.10); Basophils % (A) 0.4 %; Eosinophils # (A) 0.14 X 10*3/uL (0.04-0.35); Eosinophils % (A) 1.3 %; HCT 38.5 % (37.2-46.3); HGB 11.6 g/dL (12.0-15.0); Lymphocytes # (A) 1.78 X 10*3/uL (0.90-5.00); MCH 27.4 pg (27.0-32.0); MCHC 30.1 g/dL (32.0-37.0); Mean Platelet Volume 11.3 fL (9.5-12.2); Monocytes # (A) 0.52 X 10*3/uL (0.20-1.00); Neutrophils # (A) 7.92 X 10*3/uL (1.80-7.70); Neutrophils % (A) 75.8 %; Platelet Count 184 X 10*3/uL (140-440); RBC 4.23 X 10*6/uL (4.10-5.20); RDW 12.6 % (11.5-14.5); WBC 10.45 X 10*3/uL (4.50-10.00)
--- NOTE | 2020-08-14 11:21 | P.PN ---
<Jess Padron - Last Filed: 08/14/20 11:13> Subjective Progress Note Date: 08/14/20 CHIEF COMPLAINT: Morbid obesity HISTORY OF PRESENT ILLNESS: Patient is status post Laparoscopic sleeve gastrectomy with repair hiatal hernia, laparoscopic lysis of adhesions. She is postop day #2. Patient is complaining of headache this morning. Patient apparently had been experiencing some pain last night when taking in liquids. She is now drinking smaller amounts and is not having pain. She denies any further nausea or vomiting. She is only drank about 10 ounces of liquids today. Patient has required oxygen during the evening due to her sleep apnea. She does report having flatus. Denies any bowel movement. She does report mild cough. She has been ambulating. Afebrile. WBC 10.45 Hgb 11.6 platelets 184 PHYSICAL EXAM: VITAL SIGNS: Reviewed. GENERAL: Well-developed in no acute distress. HEENT: No sclera icterus. Extraocular movements grossly intact. Moist buccal mucosa. Head is atraumatic, normocephalic. ABDOMEN: Soft. Nondistended. Incision sites clean dry and intact NEUROLOGIC: Alert and oriented. Cranial nerves II through XII grossly intact. ASSESSMENT: 1. Morbid obesity and hiatal hernia status post Laparoscopic sleeve gastrectomy with repair hiatal hernia, laparoscopic lysis of adhesions 2. GERD 3. Obstructive sleep apnea 4. Leukocytosis probably steroid induced or atelectasis. We'll monitor PLAN: -Continue bariatric clear liquid diet -Tylenol added for headache -Continue pain medication as needed -Continue Zofran as needed for nausea -Encourage patient to ambulate -Encourage patient to use incentive spirometer Physician Quality Control Operator note has been reviewed by physician. Signing provider agrees with the documented findings, assessment, and plan of care. Objective - Vital Signs Vital signs: Vital Signs Temp 98.1 F 08/14/20 08:00 Pulse 71 08/14/20 08:17 Resp 16 08/14/20 08:17 BP 108/65 08/14/20 08:00 Pulse Ox 93 L 08/14/20 08:04 Intake & Output 08/13/20 08/14/20 08/14/20 18:59 06:59 18:59 Intake Total 2200 Balance 2200 Weight 112 kg Intake: Intake, IV Titration 2200 Amount Mvi, Adult No.4 with Vit 1200 K 10 ml Thiamine 100 mg Folic Acid 1 mg In Sodium Chloride 0.9% 1,000 ml @ 100 mls/hr IV .BY DURATION [facility] Rx#: [id number] Sodium Chloride 0.9% 1, 1000 000 ml @ 100 mls/hr IV . BY DURATION [facility] Rx#: [id number] Other: Voiding Method Toilet Toilet # Voids 2 - Labs CBC & Chem 7: 08/14/20 06:40 08/13/20 06:21 Labs: Abnormal Lab Results - Last 24 Hours (Table) 08/13/20 08/13/20 08/14/20 Range/Units 06:21 06:21 06:40 WBC 18.43 H 10.45 H (4.50-10.00) X 10*3/uL Hgb 11.6 L (12.0-15.0) g/dL MCHC 30.6 L 30.1 L (32.0-37.0) g/dL Immature Gran # 0.08 H 0.05 H (0.00-0.04) X 10*3/uL Neutrophils # 16.33 H 7.92 H (1.80-7.70) X 10*3/uL Eosinophils # 0 L (0.04-0.35) X 10*3/uL Calcium 8.4 L (8.7-10.3) mg/dL <Gallito Cortés - Last Filed: 08/14/20 12:25> Subjective As above. Patient improved from yesterday. Still having some mild discomfort with swallowing liquids. Has had about 10 ounces so far today. White blood cell count improved. Will keep overnight. Likely discharge tomorrow. Objective - Vital Signs Vital signs: Vital Signs Temp 98.1 F 08/14/20 08:00 Pulse 74 08/14/20 11:43 Resp 16 08/14/20 11:43 BP 108/65 08/14/20 08:00 Pulse Ox 93 L 08/14/20 08:04 Intake & Output 08/13/20 08/14/20 08/14/20 18:59 06:59 18:59 Intake Total 2200 Balance 2200 Weight 112 kg Intake: Intake, IV Titration 2200 Amount Mvi, Adult No.4 with Vit 1200 K 10 ml Thiamine 100 mg Folic Acid 1 mg In Sodium Chloride 0.9% 1,000 ml @ 100 mls/hr IV .BY DURATION [facility] Rx#: [id number] Sodium Chloride 0.9% 1, 1000 000 ml @ 100 mls/hr IV . BY DURATION [facility] Rx#: [id number] Other: Voiding Method Toilet Toilet # Voids 2 - Labs CBC & Chem 7: 08/14/20 06:40 08/13/20 06:21 Labs: Abnormal Lab Results - Last 24 Hours (Table) 08/14/20 Range/Units 06:40 WBC 10.45 H (4.50-10.00) X 10*3/uL Hgb 11.6 L (12.0-15.0) g/dL MCHC 30.1 L (32.0-37.0) g/dL Immature Gran # 0.05 H (0.00-0.04) X 10*3/uL Neutrophils # 7.92 H (1.80-7.70) X 10*3/uL Assessment and Plan (1) Obesity (BMI 30-39.9) Current Visit: No Status: Acute Code(s): E66.9 - OBESITY, UNSPECIFIED SNOMED Code(s): 157817977
[2020-08-14] MEDS: ACETAMINOPHEN ORAL SUSP 160 MG/5 ML CUP PO PRN (11:48)
[2020-08-14 12:29] LABS: African American GFR (CKD) 119.6 (60.0-200.0); Anion Gap 9.7 mmol/L (4.00-12.00); BUN/Creat Ratio 12.86 Ratio (12.00-20.00); Calcium 8.4 mg/dL (8.7-10.3); Carbon Dioxide 23.3 mmol/L (21.6-31.8); Non-African American GFR(CKD) 103.2 (60.0-200.0); Potassium 4.4 mmol/L (3.5-5.5)
--- NOTE | 2020-08-14 15:20 | P.PN ---
Subjective Progress Note Date: 08/14/20 - Reason for Consult Leukocytosis - History of Present Illness Patient is a pleasant 49-year-old female admitted for elective sleeve gastrectomy. Patient did not pass gas yet patient is having good bowel sounds patient is being started on clear liquid diet at this time. Patient does have history of Schatzki's ring gastroesophageal reflux disease. Patient is clinically doing well denied any fever chills. Patient denied dysuria denied any dysphagia denied any cough. 08/14/2020 Patient is seen in follow-up this morning status post gastrectomy and currently maintained on bariatric clear liquids and tolerating. No acute overnight issues. Patient reports passing gas although has not had a bowel movement at this time. Has been up and walking and continues to use incentive spirometer at least 10 times every hour while awake. White blood count trending down and is currently 10.45. Patient is afebrile and denies any chest pain or shortness of breath. Review of systems: Constitutional: No reports of fatigue, fever, or chills Cardiovascular: No reports of chest pain or palpitations Respiratory: No reports of shortness of breath or cough GI: No reports of nausea, vomiting, or diarrhea : No reports of dysuria or retention Neurovascular: No reports of weakness or numbness All medications have been reviewed Objective - Vital Signs Vital signs: Vital Signs Temp 98.1 F 08/14/20 01:40 Pulse 71 08/14/20 08:17 Resp 16 08/14/20 08:17 BP 129/69 08/14/20 01:40 Pulse Ox 93 L 08/14/20 08:04 Intake & Output 08/13/20 08/14/20 08/14/20 18:59 06:59 18:59 Intake Total 1200 Balance 1200 Weight 112 kg Intake: Intake, IV Titration 1200 Amount Mvi, Adult No.4 with Vit 1200 K 10 ml Thiamine 100 mg Folic Acid 1 mg In Sodium Chloride 0.9% 1,000 ml @ 100 mls/hr IV .BY DURATION [facility] Rx#: [id number] Other: Voiding Method Toilet Toilet # Voids 2 - Exam GENERAL: The patient is alert and oriented x3, not in any acute distress. Obese HEENT: Pupils are round and equally reacting to light. EOMI. No scleral icterus. No conjunctival pallor. Normocephalic, atraumatic. No pharyngeal erythema. No thyromegaly. CARDIOVASCULAR: S1 and S2 present. No murmurs, rubs, or gallops. PULMONARY: Chest is clear to auscultation, no wheezing or crackles. ABDOMEN: Soft, nontender, nondistended, normoactive bowel sounds. No palpable organomegaly. MUSCULOSKELETAL: No joint swelling or deformity. EXTREMITIES: No cyanosis, clubbing, or pedal edema. NEUROLOGICAL: Gross neurological examination did not reveal any focal deficits. SKIN: No rashes. - Labs CBC & Chem 7: 08/14/20 06:40 08/14/20 06:40 Labs: Abnormal Lab Results - Last 24 Hours (Table) 08/13/20 08/13/20 Range/Units 06:21 06:21 WBC 18.43 H (4.50-10.00) X 10*3/uL MCHC 30.6 L (32.0-37.0) g/dL Immature Gran # 0.08 H (0.00-0.04) X 10*3/uL Neutrophils # 16.33 H (1.80-7.70) X 10*3/uL Eosinophils # 0 L (0.04-0.35) X 10*3/uL Calcium 8.4 L (8.7-10.3) mg/dL Assessment and Plan Assessment: -Leukocytosis: Reactive secondary to surgery surgery patient doesn't have any signs or symptoms of sepsis at this time will not require any further intervention, improving current white blood count is 10.45 -Gastroesophageal reflux disease for which patient is on Protonix to be continued -Obstructive sleep apnea, obesity patient underwent sleeve gastrectomy -Osteoarthritis -Depression patient was resumed home medications for this. -DVT prophylaxis per primary service Plan: Continue with current medications and appropriate home medications have been resumed. Patient is maintained on bariatric or liquids and tolerating thus far. Patient is up and increasing activity as tolerated. Incentive spirometer at t he bedside and instructed the patient to continue using every hour at least 10 times per hour. Patient states she is passing gas although no reports of bowel movement at this time. Patient is voiding with no difficulties. Will continue to follow along with surgery during hospitalization.
[2020-08-14] MEDS: FLUoxetine HCL 20 MG CAP PO SCH (21:02)
[2020-08-14] MEDS ORDERED: ACETAMINOPHEN ORAL SUSP 160 MG/5 ML CUP ONE (23:59)
[2020-08-15] MEDS: LACTATED RINGERS 1,000 ML IV SCH (00:33)
[2020-08-15] MEDS: KETOROLAC 15 MG/ML 1 ML VIAL IVP SCH ×3 (05:31→17:57)
[2020-08-15] MEDS: 1: MVI, ADULT NO.4 WITH VIT K 10 ML, THIAMINE 100 MG, FOLIC ACID 1 MG in SODIUM CHLORIDE IV SCH ×8 (07:17→18:03)
[2020-08-15] MEDS: ALBUTEROL NEBULIZED 2.5 MG/3 ML INHALATION SCH ×4 (08:28→20:14)
[2020-08-15] MEDS: ENOXAPARIN 40 MG/0.4 ML SYRINGE SQ SCH ×2 (09:06→21:29)
[2020-08-15] MEDS: PANTOPRAZOLE 40 MG/10 ML VIAL IV SCH (09:07)
[2020-08-15 09:43] LABS: Basophils % (A) 0 %; Eosinophils # (A) 0.3 k/uL (0-0.7); Eosinophils % (A) 3 %; HCT 36.8 % (34.0-46.0); HGB 11.7 gm/dL (11.4-16.0); Lymphocytes # (A) 1.4 k/uL (1.0-4.8); Lymphocytes % (A) 14 %; MCH 27.5 pg (25.0-35.0); MCHC 31.7 g/dL (31.0-37.0); MCV 86.5 fL (80.0-100.0); Mean Platelet Volume 7.6; Monocytes # (A) 0.3 k/uL (0-1.0); Monocytes % (A) 3 %; Neutrophils # (A) 7.8 k/uL (1.3-7.7); Neutrophils % (A) 79 %; Platelet Count 188 k/uL (150-450); RBC 4.25 m/uL (3.80-5.40); RDW 12.9 % (11.5-15.5); WBC 9.9 k/uL (3.8-10.6)
[2020-08-15] MEDS ORDERED: SODIUM CHLORIDE 0.9% 1,000 ML IV ONE (11:01)
[2020-08-15] MEDS: ACETAMINOPHEN ORAL SUSP 160 MG/5 ML CUP PO PRN (11:18)
--- NOTE | 2020-08-15 12:20 | P.PN ---
<Jess Padron - Last Filed: 08/15/20 12:17> Subjective Progress Note Date: 08/15/20 CHIEF COMPLAINT: Morbid obesity HISTORY OF PRESENT ILLNESS: Patient is status post Laparoscopic sleeve gastrectomy with repair hiatal hernia, laparoscopic lysis of adhesions. She is postop day #3. Patient is still complaining of a headache. She reports that the headache went away for a little bit yesterday but continues to remain. She does report that her urine is dark. She was able to drink may be 16-20 ounces of liquids yesterday. She's had about 12 ounces today. Patient was also to be put on CPAP last night but that never did get set up. She has had improvement in her nausea. No vomiting. She does report flatus. She has been up and ambulating. Afebrile. WBC 9.9 Hgb 11.7 PHYSICAL EXAM: VITAL SIGNS: Reviewed. GENERAL: Well-developed in no acute distress. HEENT: No sclera icterus. Extraocular movements grossly intact. Moist buccal mucosa. Head is atraumatic, normocephalic. ABDOMEN: Soft. Nondistended. Incision sites clean dry and intact NEUROLOGIC: Alert and oriented. Cranial nerves II through XII grossly intact. ASSESSMENT: 1. Morbid obesity and hiatal hernia status post Laparoscopic sleeve gastrectomy with repair hiatal hernia, laparoscopic lysis of adhesions 2. GERD 3. Obstructive sleep apnea 4. Leukocytosis resolved. Probably secondary to steroids or atelectasis. 5. Headache possibly due to dehydration or due to not being able to use the CPAP during the night. PLAN: -Give 1 L fluid bolus for dehydration -Continue bariatric clear liquid diet -Continue pain medication as needed -Continue Zofran as needed for nausea -Encourage patient to ambulate -Encourage patient to use incentive spirometer Physician Computer Science Professor note has been reviewed by physician. Signing provider agrees with the documented findings, assessment, and plan of care. Objective - Vital Signs Vital signs: Vital Signs Temp 98.3 F 08/15/20 02:00 Pulse 82 08/15/20 11:45 Resp 18 08/15/20 08:29 BP 122/74 08/15/20 02:00 Pulse Ox 93 L 08/15/20 08:29 Intake & Output 08/14/20 08/15/20 08/15/20 18:59 06:59 18:59 Intake Total 1011.2 1000 Balance 1011.2 1000 Intake: Intake, IV Titration 1011.2 1000 Amount Mvi, Adult No.4 with Vit 1011.2 K 10 ml Thiamine 100 mg Folic Acid 1 mg In Sodium Chloride 0.9% 1,000 ml @ 100 mls/hr IV .BY DURATION [facility] Rx#: [id number] Sodium Chloride 0.9% 1, 1000 000 ml @ 100 mls/hr IV . BY DURATION [facility] Rx#: [id number] Other: Voiding Method Toilet # Voids 2 1 - Labs CBC & Chem 7: 08/15/20 09:21 08/14/20 06:40 Labs: Abnormal Lab Results - Last 24 Hours (Table) 08/14/20 08/15/20 Range/Units 06:40 09:21 Neutrophils # 7.8 H (1.3-7.7) k/uL Glucose 67 L (70-110) mg/dL Calcium 8.4 L (8.7-10.3) mg/dL <Gallito Cortés - Last Filed: 08/15/20 14:09> Subjective As above. Patient doing well. She has had almost 60 ounces of liquid so far today. She would like to go home. Will plan discharge. Follow-up bariatric clinic tomorrow and next Wednesday. Objective - Vital Signs Vital signs: Vital Signs Temp 98.3 F 08/15/20 02:00 Pulse 82 08/15/20 11:45 Resp 18 08/15/20 08:29 BP 122/74 08/15/20 02:00 Pulse Ox 93 L 08/15/20 08:29 Intake & Output 08/14/20 08/15/20 08/15/20 18:59 06:59 18:59 Intake Total 1011.2 1000 Balance 1011.2 1000 Intake: Intake, IV Titration 1011.2 1000 Amount Mvi, Adult No.4 with Vit 1011.2 K 10 ml Thiamine 100 mg Folic Acid 1 mg In Sodium Chloride 0.9% 1,000 ml @ 100 mls/hr IV .BY DURATION [facility] Rx#: [id number] Sodium Chloride 0.9% 1, 1000 000 ml @ 100 mls/hr IV . BY DURATION [facility] Rx#: [id number] Other: Voiding Method Toilet # Voids 2 1 - Labs CBC & Chem 7: 02/25/21 09:21 08/14/20 06:40 Labs: Abnormal Lab Results - Last 24 Hours (Table) 08/15/20 Range/Units 09:21 Neutrophils # 7.8 H (1.3-7.7) k/uL Assessment and Plan (1) Obesity (BMI 30-39.9) Current Visit: No Status: Acute Code(s): E66.9 - OBESITY, UNSPECIFIED SNOMED Code(s): 591595773
--- NOTE | 2020-08-15 14:26 | P.PN ---
Subjective Progress Note Date: 08/15/20 - Reason for Consult Leukocytosis - History of Present Illness Patient is a pleasant 49-year-old female admitted for elective sleeve gastrectomy. Patient did not pass gas yet patient is having good bowel sounds patient is being started on clear liquid diet at this time. Patient does have history of Schatzki's ring gastroesophageal reflux disease. Patient is clinically doing well denied any fever chills. Patient denied dysuria denied any dysphagia denied any cough. 08/14/2020 Patient is seen in follow-up this morning status post gastrectomy and currently maintained on bariatric clear liquids and tolerating. No acute overnight issues. Patient reports passing gas although has not had a bowel movement at this time. Has been up and walking and continues to use incentive spirometer at least 10 times every hour while awake. White blood count trending down and is currently 10.45. Patient is afebrile and denies any chest pain or shortness of breath. 08/15/2020 Patient is seen this morning with no acute overnight issues. She apparently has been working on obtaining her CPAP machine in the outpatient setting and one was ordered for year last night although staff did not place patient on CPAP. Patient is having some congested cough although denies shortness of breath. Will prescribe cough syrup and instructed patient to follow-up with primary care provider upon discharge. She is afebrile, vital signs are stable, oxygen saturation is within normal limits. Patient instructed to continue using incentive spirometer at least 10 times every hour while awake. White blood count is 9.9. Review of systems: Constitutional: No reports of fatigue, fever, or chills Cardiovascular: No reports of chest pain or palpitations Respiratory: No reports of shortness of breath, reports occasional cough GI: No reports of nausea, vomiting, or diarrhea : No reports of dysuria or retention Neurovascular: No reports of weakness or numbness All medications have been reviewed Objective - Vital Signs Vital signs: Vital Signs Temp 98.3 F 08/15/20 02:00 Pulse 85 08/15/20 08:41 Resp 18 08/15/20 08:29 BP 122/74 08/15/20 02:00 Pulse Ox 93 L 08/15/20 08:29 Intake & Output 08/14/20 08/15/20 08/15/20 18:59 06:59 18:59 Intake Total 1011.2 1000 Balance 1011.2 1000 Intake: Intake, IV Titration 1011.2 1000 Amount Mvi, Adult No.4 with Vit 1011.2 K 10 ml Thiamine 100 mg Folic Acid 1 mg In Sodium Chloride 0.9% 1,000 ml @ 100 mls/hr IV .BY DURATION [facility] Rx#: [id number] Sodium Chloride 0.9% 1, 1000 000 ml @ 100 mls/hr IV . BY DURATION [facility] Rx#: [id number] Other: Voiding Method Toilet # Voids 2 1 - Exam GENERAL: The patient is alert and oriented x3, not in any acute distress. Obese HEENT: Pupils are round and equally reacting to light. EOMI. No scleral icterus. No conjunctival pallor. Normocephalic, atraumatic. No pharyngeal erythema. No thyromegaly. CARDIOVASCULAR: S1 and S2 present. No murmurs, rubs, or gallops. PULMONARY: Chest is clear to auscultation, no wheezing or crackles. Dry cough noted on exam. ABDOMEN: Soft, nontender, nondistended, normoactive bowel sounds. No palpable organomegaly. MUSCULOSKELETAL: No joint swelling or deformity. EXTREMITIES: No cyanosis, clubbing, or pedal edema. NEUROLOGICAL: Gross neurological examination did not reveal any focal deficits. SKIN: No rashes. - Labs CBC & Chem 7: 08/15/20 09:21 08/14/20 06:40 Labs: Abnormal Lab Results - Last 24 Hours (Table) 08/14/20 08/14/20 Range/Units 06:40 06:40 WBC 10.45 H (4.50-10.00) X 10*3/uL Hgb 11.6 L (12.0-15.0) g/dL MCHC 30.1 L (32.0-37.0) g/dL Immature Gran # 0.05 H (0.00-0.04) X 10*3/uL Neutrophils # 7.92 H (1.80-7.70) X 10*3/uL Glucose 67 L (70-110) mg/dL Calcium 8.4 L (8.7-10.3) mg/dL Assessment and Plan Assessment: -Leukocytosis: Reactive secondary to surgery surgery patient doesn't have any signs or symptoms of sepsis at this time will not require any further intervention, improving current white blood count is 9.9 -Gastroesophageal reflux disease for which patient is on Protonix to be continued -Obstructive sleep apnea, obesity patient underwent sleeve gastrectomy, needs to follow-up outpatient with obtaining CPAP machine -Osteoarthritis -Depression patient was resumed home medications for this. -DVT prophylaxis per primary service Plan: Continue with current medications and appropriate home medications have been resumed. Patient is maintained on bariatric or liquids and tolerating thus far. Patient is up and increasing activity as tolerated. Incentive spirometer at the bedside and instructed the patient to continue using every hour at least 10 times per hour. Patient has a dry congested cough and instructed to continue using the incentive spirometer even in-home and sent a prescription for cough syrup to pharmacy. Patient states she is passing gas although no reports of bowel movement at this time. Patient is voiding with no difficulties. Will continue to follow along with surgery during hospitalization. She is being discharged today.
--- NOTE | 2020-08-15 14:28 | P.DS ---
Providers Date of admission: 08/12/20 10:16 Expected date of discharge: 08/15/20 Attending physician: Gallito Cortés Consults: 08/12/20 16:44 Consult Physician Routine Consulting Provider: Fabiana Mo Consult Reason/Comments: Medical management Do you want consulting provider notified?: Yes Primary care physician: Shameka Cortés Hospital Course: Discharge diagnosis 1. Morbid obesity and hiatal hernia status post Laparoscopic sleeve gastrectomy with repair hiatal hernia, laparoscopic lysis of adhesions 2. GERD 3. Obstructive sleep apnea 4. Leukocytosis resolved. Probably secondary to steroids or atelectasis. 5. Headache possibly due to dehydration or due to not being able to use the CPAP during the night. Headache did improve after IV fluid bolus. Hospital course This is a 49-year-old female with a core morbidities including morbid obesity, obstructive sleep apnea and GERD. Patient is status post Laparoscopic sleeve gastrectomy with repair hiatal hernia, laparoscopic lysis of adhesions. Patient tolerated surgery well. Her upper GI showed no evidence of leak. She is tolerating her bariatric clear liquid diet. Her pain is controlled. She is passing gas. She is ambulating. Her headache from earlier today did improve after the IV fluid bolus. She's afebrile. White count has normalized at 9.9. Patient is stable for discharge. Physician Automotive Maintenance Technician note has been reviewed by physician. Signing provider agrees with the documented findings, assessment, and plan of care. Patient Condition at Discharge: Stable Plan - Discharge Summary Discharge Rx Participant: No New Discharge Prescriptions: New bisacodyL [Dulcolax] 5 mg PO DAILY PRN #10 tablet.dr CHAUDHARIN Reason: Constipation Simethicone 40 mg/0.6 ml Drops [Mylicon Drops] 40 mg PO PCHS PRN #30 ml PRN Reason: Gas Omeprazole [PriLOSEC] 40 mg PO DAILY #30 capsule. Ondansetron Odt [Zofran Odt] 4 mg PO Q8HR PRN #9 tab PRN Reason: Nausea traMADol HCL [Ultram] 50 mg PO Q6HR PRN 2 Days #6 tab PRN Reason: Pain guaiFENesin-DM 100-10MG/5ML [Robitussin DM] 10 ml PO Q6H #120 ml Continue FLUoxetine HCL [PROzac] 20 mg PO HS Spironolactone 50 mg PO HS diphenhydrAMINE [Benadryl] 25 mg PO HS PRN PRN Reason: SLEEP Discontinued Omeprazole [PriLOSEC] 20 mg PO DAILY PRN MDD 2 PRN Reason: Gi Upset Discharge Medication List FLUoxetine HCL [PROzac] 20 mg PO HS 08/30/18 [History] Spironolactone 50 mg PO HS 06/06/19 [History] diphenhydrAMINE [Benadryl] 25 mg PO HS PRN 05/30/20 [History] Omeprazole [PriLOSEC] 40 mg PO DAILY #30 capsule. 08/15/20 [Rx] Ondansetron Odt [Zofran Odt] 4 mg PO Q8HR PRN #9 tab 08/15/20 [Rx] Simethicone 40 mg/0.6 ml Drops [Mylicon Drops] 40 mg PO PCHS PRN #30 ml 08/15/20 [Rx] bisacodyL [Dulcolax] 5 mg PO DAILY PRN #10 tablet. 08/15/20 [Rx] guaiFENesin-DM 100-10MG/5ML [Robitussin DM] 10 ml PO Q6H #120 ml 08/15/20 [Rx] traMADol HCL [Ultram] 50 mg PO Q6HR PRN 2 Days #6 tab 08/15/20 [Rx] [place] Activity/Diet/Wound Care/Special Instructions: No driving while taking narcotic No lifting over 10 pounds You may shower. No soaking or tub baths for 2 weeks Very light activity until you are reevaluated at your follow up appointment with your surgeon Need to follow-up with CPAP Continue using incentive spirometer 10 times every hour while awake Discharge Disposition: HOME SELF-CARE
--- NOTE | 2020-08-15 15:48 | XR ---
EXAMINATION TYPE: XR chest 1V DATE OF EXAM: 08/15/2020 COMPARISON: NONE HISTORY: Chest pain TECHNIQUE: Single frontal view of the chest is obtained. FINDINGS: Patchy right infrahilar density may reflect pneumonia. Correlate clinically and progress studies are advised. The cardiac silhouette size is within normal limits. The osseous structures are intact. IMPRESSION: 1. Patchy right infrahilar density may reflect pneumonia. Correlate clinically and progress studies are advised.
[2020-08-15] MEDS ORDERED: BENZOCAINE/MENTHOL LOZENG 1 EACH LOZENGE MUCOUS MEM PRN (16:45)
[2020-08-15] MEDS ORDERED: guaiFENesin SYRUP 100MG/5ML 200 MG/10 ML CUP PO PRN (16:45)
[2020-08-15] MEDS ORDERED: FUROSEMIDE 10 MG/ML 2 ML VIAL IV ONE (17:00)
[2020-08-15] MEDS ORDERED: AMOXIC-POT CLAV 875-125MG 1 EACH TAB PO SCH (21:00)
[2020-08-15] MEDS: HYOSCYAMINE ORAL DROPS 1.875 MG/15 ML BOTTLE PO PRN (21:27)
[2020-08-15] MEDS: FLUoxetine HCL 20 MG CAP PO SCH (21:29)
[2020-08-16] MEDS: KETOROLAC 15 MG/ML 1 ML VIAL IVP SCH ×2 (00:56→05:26)
[2020-08-16] MEDS: 1: MVI, ADULT NO.4 WITH VIT K 10 ML, THIAMINE 100 MG, FOLIC ACID 1 MG in SODIUM CHLORIDE IV SCH ×4 (03:38)
[2020-08-16] MEDS: LACTATED RINGERS 1,000 ML IV SCH (03:43)
[2020-08-16] MEDS: ONDANSETRON 4 MG/2 ML VIAL IVP PRN (05:26)
[2020-08-16 07:40] VITALS: BP 133/79; RESP 18; TEMP 98.1
[2020-08-16] MEDS: ACETAMINOPHEN ORAL SUSP 160 MG/5 ML CUP PO PRN (07:56)
[2020-08-16] MEDS: PANTOPRAZOLE 40 MG/10 ML VIAL IV SCH (08:00)
[2020-08-16] MEDS: ENOXAPARIN 40 MG/0.4 ML SYRINGE SQ SCH (08:00)
[2020-08-16] MEDS: ALBUTEROL NEBULIZED 2.5 MG/3 ML INHALATION SCH ×2 (08:09→11:16)
[2020-08-16 08:12] VITALS: PULSE 70
[2020-08-16] MEDS ORDERED: AMOXIC-POT CLAV 200-28.5MG/5ML 100 ML BOTTLE PO SCH (09:00)
[2020-08-16 09:27] LABS: Basophils # (A) 0.05 X 10*3/uL (0.00-0.10); Basophils % (A) 0.5 %; Eosinophils # (A) 0.16 X 10*3/uL (0.04-0.35); Eosinophils % (A) 1.6 %; HCT 36.8 % (37.2-46.3); HGB 11.6 g/dL (12.0-15.0); Lymphocytes # (A) 1.29 X 10*3/uL (0.90-5.00); Lymphocytes % (A) 13.1 %; MCH 27.4 pg (27.0-32.0); MCHC 31.5 g/dL (32.0-37.0); Mean Platelet Volume 11.4 fL (9.5-12.2); Monocytes # (A) 0.47 X 10*3/uL (0.20-1.00); Monocytes % (A) 4.8 %; Neutrophils # (A) 7.82 X 10*3/uL (1.80-7.70); Neutrophils % (A) 79.7 %; Platelet Count 230 X 10*3/uL (140-440); RBC 4.23 X 10*6/uL (4.10-5.20); RDW 12.5 % (11.5-14.5); WBC 9.82 X 10*3/uL (4.50-10.00)
--- NOTE | 2020-08-16 16:23 | P.PN ---
Subjective Progress Note Date: 08/16/20 - Reason for Consult Leukocytosis - History of Present Illness Patient is a pleasant 49-year-old female admitted for elective sleeve gastrectomy. Patient did not pass gas yet patient is having good bowel sounds patient is being started on clear liquid diet at this time. Patient does have history of Schatzki's ring gastroesophageal reflux disease. Patient is clinically doing well denied any fever chills. Patient denied dysuria denied any dysphagia denied any cough. 08/14/2020 Patient is seen in follow-up this morning status post gastrectomy and currently maintained on bariatric clear liquids and tolerating. No acute overnight issues. Patient reports passing gas although has not had a bowel movement at this time. Has been up and walking and continues to use incentive spirometer at least 10 times every hour while awake. White blood count trending down and is currently 10.45. Patient is afebrile and denies any chest pain or shortness of breath. 08/15/2020 Patient is seen this morning with no acute overnight issues. She apparently has been working on obtaining her CPAP machine in the outpatient setting and one was ordered for year last night although staff did not place patient on CPAP. Patient is having some congested cough although denies shortness of breath. Will prescribe cough syrup and instructed patient to follow-up with primary care provider upon discharge. She is afebrile, vital signs are stable, oxygen saturation is within normal limits. Patient instructed to continue using incentive spirometer at least 10 times every hour while awake. White blood count is 9.9. Addendum entered and electronically signed by Diane Taylor NP-C 08/15/20 16:49: 08/15/2020 patient continued with cough and obtained a chest xray as pulse ox on room air was 89-90%. saturations improved with rest to 93% room air. Started Robitussin and continued with albuterol QID, and started empiric antiobiotics as cxr shows possible right upper lobe patchy density. Patient is afebrile, denies any shortness of breath, and WBC improving and within normal limits. Patient was also to receive her cpap at home although they are unable to deliver to her tomorrow. Discussed with surgery and will hold discharge to further observe overnight for any issues and reevaluate in the morning. Patient to continue with current regimen and orders placed. RN and patient agreeable and surgery is aware. 08/16/2020 Patient is seen this morning with no acute overnight issues. Patient attempted CPAP although feels uncomfortable and needs a new headpiece which is being provided today by [employer]. Patient denies any worsening cough or shortness of breath. Patient has been using incentive spirometer and continue with breathing treatments. Patient also received antibiotics and instructed to continue with for the next 5 days to complete the course. Patient also provided an albuterol inhaler and cough syrup upon discharge. Patient is eager to go home today and is being discharged by surgery team. Review of systems: Constitutional: No reports of fatigue, fever, or chills Cardiovascular: No reports of chest pain or palpitations Respiratory: No reports of shortness of breath, reports occasional cough that has improved GI: No reports of nausea, vomiting, or diarrhea : No reports of dysuria or retention Neurovascular: No reports of weakness or numbness All medications have been reviewed Objective - Vital Signs Vital signs: Vital Signs Temp 98.1 F 08/16/20 07:08 Pulse 70 08/16/20 08:20 Resp 18 08/16/20 07:08 BP 133/79 08/16/20 07:08 Pulse Ox 95 08/16/20 07:08 Intake & Output 08/15/20 08/16/20 08/16/20 18:59 06:59 18:59 Intake Total 3131.2 Balance 3131.2 Intake: Intake, IV Titration 3011.2 Amount Mvi, Adult No.4 with Vit 1011.2 K 10 ml Thiamine 100 mg Folic Acid 1 mg In Sodium Chloride 0.9% 1,000 ml @ 100 mls/hr IV .BY DURATION [facility] Rx#: [id number] Sodium Chloride 0.9% 1, 1000 000 ml @ 100 mls/hr IV . BY DURATION [facility] Rx#: [id number] Sodium Chloride 0.9% 1, 1000 000 ml @ 999 mls/hr IV . Q1H1M ONE Rx#:[id number] Oral 120 Other: Voiding Method Toilet # Voids 3 1 - Exam GENERAL: The patient is alert and oriented x3, not in any acute distress. Obese HEENT: Pupils are round and equally reacting to light. EOMI. No scleral icterus. No conjunctival pallor. Normocephalic, atraumatic. No pharyngeal erythema. No thyromegaly. CARDIOVASCULAR: S1 and S2 present. No murmurs, rubs, or gallops. PULMONARY: Chest is clear to auscultation, no wheezing or crackles. ABDOMEN: Soft, nontender, nondistended, normoactive bowel sounds. No palpable organomegaly. MUSCULOSKELETAL: No joint swelling or deformity. EXTREMITIES: No cyanosis, clubbing, or pedal edema. NEUROLOGICAL: Gross neurological examination did not reveal any focal deficits. SKIN: No rashes. - Labs CBC & Chem 7: 08/16/20 05:47 08/14/20 06:40 Labs: Abnormal Lab Results - Last 24 Hours (Table) 08/16/20 Range/Units 05:47 Hgb 11.6 L (12.0-15.0) g/dL Hct 36.8 L (37.2-46.3) % MCHC 31.5 L (32.0-37.0) g/dL Neutrophils # 7.82 H (1.80-7.70) X 10*3/uL Assessment and Plan Assessment: -Leukocytosis: Reactive secondary to surgery surgery patient doesn't have any signs or symptoms of sepsis at this time will not require any further intervention, improving current white blood count is 9.9 -Gastroesophageal reflux disease for which patient is on Protonix to be continued -Obstructive sleep apnea, obesity patient underwent sleeve gastrectomy, needs to follow-up outpatient with obtaining CPAP machine, one has been delivered to the home -Osteoarthritis -Depression patient was resumed home medications for this. -DVT prophylaxis per primary service Plan: Continue with current medications and appropriate home medications have been resumed. Patient is maintained on bariatric or liquids and tolerating thus far. Patient is up and increasing activity as tolerated. Incentive spirometer at the bedside and instructed the patient to continue using every hour at least 10 times per hour. Patient has a dry congested cough and instructed to continue using the incentive spirometer even in-home and sent a prescription for cough syrup to pharmacy. Also provided patient with a inhaler and Augmentin liquid twice daily for the next 5 days to complete course. Patient states she is pas sing gas although no reports of bowel movement at this time. Patient is voiding with no difficulties. Will continue to follow along with surgery during hospitalization. She is being discharged today.
== END 2020-08-16 12:03 | disposition home or self-care (01) | DRG 619 ==
LOC: 2ORMAIN 10:16 → 4SSUR 17:36
PROVIDERS: ADMIT Surgery; ATTEND Surgery
PROC: 0BQT4ZZ Repair Diaphragm, Percutaneous Endoscopic Approach (ICD-10-PCS; 2020-08-12)
PROC: 0DNU4ZZ Release Omentum, Percutaneous Endoscopic Approach (ICD-10-PCS; 2020-08-12)
PROC: 0DB64Z3 Excision of Stomach, Percutaneous Endoscopic Approach, Vertical (ICD-10-PCS; principal; 2020-08-12 11:35)
DX: E66.01 Morbid (severe) obesity due to excess calories (principal); J18.9 Pneumonia, unspecified organism; G90.50 Complex regional pain syndrome I, unspecified; J98.11 Atelectasis; G47.33 Obstructive sleep apnea (adult) (pediatric); K21.9 Gastro-esophageal reflux disease without esophagitis; K44.9 Diaphragmatic hernia without obstruction or gangrene; K66.0 Peritoneal adhesions (postprocedural) (postinfection); M19.90 Unspecified osteoarthritis, unspecified site; G43.909 Migraine, unspecified, not intractable, without status migrainosus; D72.829 Elevated white blood cell count, unspecified; F32.9 Major depressive disorder, single episode, unspecified; R11.0 Nausea; T38.0X5A Adverse effect of glucocorticoids and synthetic analogues, initial encounter; E86.0 Dehydration; K59.00 Constipation, unspecified; F41.9 Anxiety disorder, unspecified; Z68.37 Body mass index [BMI] 37.0-37.9, adult; Z79.899 Other long term (current) drug therapy; Z90.49 Acquired absence of other specified parts of digestive tract; Z98.890 Other specified postprocedural states; Z87.891 Personal history of nicotine dependence; Z88.1 Allergy status to other antibiotic agents
CPT/HCPCS: 71045; 74240; 80048; 80051; 80053; 81025; 82310; 82565; 83735; 84100; 84520; 85025; 88307; 94640; 94660; 94760

== ENCOUNTER → 2020-08-20 | Outpatient (CLI) | payer BC ==
[2020-08-20 14:06] VITALS: BP 124/80; PULSE 90; RESP 16; TEMP 97.7; BMI 37.5
--- NOTE | 2020-08-20 15:20 | P.BASOAP ---
Subjective Progress Note Date: 08/20/20 Principal diagnosis: Morbid obesity Patient returns 1 week after sleeve gastrectomy. Doing well. Drinking approximately 70-80 ounces of liquids daily. Able to get in at least 20-30 g of protein daily as well. Has lost 4 pounds since surgery. Was given a prescription for antibiotics for possible pulmonary infiltrate. She is finishing that now. No tachycardia. No fevers. Minimal discomfort. Objective - Vital Signs Vital signs: Vital Signs Temp 97.7 F 08/20/20 14:00 Pulse 90 08/20/20 14:00 Resp 16 08/20/20 14:00 BP 124/80 08/20/20 14:00 Pulse Ox Intake & Output 08/19/20 08/20/20 08/20/20 18:59 06:59 18:59 Weight 110.223 kg - Exam Abdomen: Soft, nontender, nondistended, incisions clean and dry Assessment/Plan (1) Obesity (BMI 30-39.9) Narrative/Plan: Patient overall doing well after recent sleeve gastrectomy. Continue liquid diet. Continue encouraging close monitoring of liquid and protein intake. We'll see dietitian today. Follow-up 2 weeks. Plan: Date: 08/20/20 Initial Weight: 113.653 kg Initial BMI: 38.6 Current Weight: 110.223 kg Current BMI: 37.5 Type of Surgery: Total Volume in Band: Previous Volume: Volume Removed: Volume Added: Band Size:
== END | disposition home or self-care (01) ==
LOC: BARWHC3 13:48
PROVIDERS: ATTEND Surgery
DX: E66.01 Morbid (severe) obesity due to excess calories (principal); Z98.84 Bariatric surgery status; Z68.37 Body mass index [BMI] 37.0-37.9, adult; Z71.3 Dietary counseling and surveillance
CPT/HCPCS: 97803; 99211

== ENCOUNTER → 2020-09-05 | Outpatient (CLI) | payer BC ==
--- NOTE | 2020-09-05 15:15 | SFUN ---
SLEEP CENTER FOLLOW UP NOTE DATE OF SERVICE: 09/05/2020 This 49-year-old lady had been followed in Sleep Center for treatment of obstructive sleep apnea-hypopnea syndrome. Recently, patient had a home sleep apnea test and I discussed results of the sleep study with patient in detail. She has severe sleep apnea with apnea-hypopnea index 39.9 and oxygen desaturation to 79%. The patient was recommended to start treatment with auto PAP, but she has difficulties with using CPAP equipment. She hears the noise from her breathing and that does not let her fall asleep. I checked CPAP unit. Range of the pressure 5-20, average pressure 8.4. The patient used it for 3 times out of 19 nights with average usage 1.2 hours. According to patient, she did not sleep at the time when she used her machine. Leak was 4 L/minute. Apnea-hypopnea index was only 0.5, but again according to patient, she did not sleep. The patient had sleeve surgery on August 12 and after surgery she lost weight from 257 pounds to 232 pounds today. CURRENT MEDICATIONS: Phentermine 37.5 mg once a day, omeprazole 20 mg once a day, spironolactone 50 mg once a day, fluoxetine 20 mg once a day. PHYSICAL EXAMINATION: GENERAL: Patient in no distress. VITAL SIGNS: BP 108/75, HR 104, weight 232.2, temperature 95.7, oxygen saturation at room air 96%. HEENT: PERRLA, EOMI. Oropharynx low position of soft palate. Mallampati 3. NECK: Supple, no JVD. Thyroid is not palpable. LUNGS: Clear to percussion and to auscultation. Good air exchange. No wheezing or rhonchi. HEART: S1, S2 regular. No murmurs, gallops, or rubs. ABDOMEN: Slightly obese. EXTREMITIES: No clubbing or cyanosis. RIG HAND: Awake, alert, and oriented X3. Cranial nerves 2 to 7 intact. There is no fasciculation or atrophy. noted. No focal deficits observed. IMPRESSION: 1. Severe obstructive sleep apnea-hypopnea syndrome by results of home sleep apnea test which may underestimate severity of sleep apnea. The patient has significant difficulties with using CPAP equipment. I feel that she cannot follow sleep while on CPAP, mostly because of the noise related to hearing of her breathing. 2. Obesity. Patient lost 25 pounds since her sleeve surgery recently. 3. Acid reflux. 4. History of arthritis. 5. History of acne. 6. History of depression and seasonal affective disorder. 7. Status post cholecystectomy. 8. Status post . PLAN: 1. I discussed in details necessity to use CPAP equipment because patient has severe sleep apnea, our discussion included risk of note using CPAP equipment. 2. Patient may try to use ear plugs. 3. The patient was given sample of AirFit P10 nasal pillow mask. 4. Continue losing weight. 5. Sleep hygiene with regular time in bed for 7-1/2 to 8 hours. 6. No driving if feeling sleepiness. 7. Follow-up visit in several months to check patient progress. If patient will significantly lose her weight, we might consider to repeat sleep study for evaluation of her breathing after losing weight. I spent with patient about 30 minutes. Thank you very much for allowing me to participate in management of your patient. Sincerely, Ken Alarcon MD, PhD, FAASM Diplomat of [place] [employer] [place] [employer] [facility] [employer] [place] MMODL / IJN: [id number] /
== END | disposition home or self-care (01) ==
LOC: SLEEP 11:11
PROVIDERS: ATTEND Internal Medicine
DX: G47.33 Obstructive sleep apnea (adult) (pediatric) (principal); E66.9 Obesity, unspecified; K21.9 Gastro-esophageal reflux disease without esophagitis; Z90.49 Acquired absence of other specified parts of digestive tract; Z86.59 Personal history of other mental and behavioral disorders; Z99.89 Dependence on other enabling machines and devices; Z79.899 Other long term (current) drug therapy; Z87.39 Personal history of other diseases of the musculoskeletal system and connective tissue

== ENCOUNTER → 2020-09-10 | Outpatient (CLI) | payer BC ==
[2020-09-10 14:15] VITALS: BP 109/65; PULSE 78; RESP 16; TEMP 97.5; BMI 35.9
[2020-09-10 15:26] LABS: HCT 40.8 % (34.0-46.0); MCH 28.6 pg (25.0-35.0); MCHC 34.3 g/dL (31.0-37.0); MCV 83.4 fL (80.0-100.0); Mean Platelet Volume 8.5; Platelet Count 210 k/uL (150-450); RBC 4.89 m/uL (3.80-5.40); RDW 13.4 % (11.5-15.5); WBC 8.3 k/uL (3.8-10.6)
--- NOTE | 2020-09-10 16:33 | P.BASOAP ---
Subjective Progress Note Date: 09/10/20 Principal diagnosis: Morbid obesity Patient returns for recheck. Underwent sleeve gastrectomy 08/16. She has lost 10 pounds since her last visit. She is due for one month labs. She had an episode of emesis after eating tuna on one occasion. Heart rate normal. No fevers. No pain. Objective - Vital Signs Vital signs: Vital Signs Temp 97.5 F L 09/10/20 14:11 Pulse 78 09/10/20 14:11 Resp 16 09/10/20 14:11 BP 109/65 09/10/20 14:11 Pulse Ox Intake & Output 09/09/20 09/10/20 09/10/20 18:59 06:59 18:59 Weight 105.687 kg - Exam Abdomen: Soft, nontender, nondistended - Labs CBC & Chem 7: 09/10/20 15:01 Assessment/Plan (1) Obesity (BMI 30-39.9) Narrative/Plan: Patient doing well postoperatively. Continue dietary and exercise regimen. Pat ient should be okay to travel to [place] 2 weeks from now. Return visit one month. We'll check labs today. Plan: Date: 09/10/20 Initial Weight: 113.653 kg Initial BMI: 38.6 Current Weight: 105.687 kg Current BMI: 35.9 Type of Surgery: Total Volume in Band: Previous Volume: Volume Removed: Volume Added: Band Size:
[2020-09-11 04:48] LABS: Folate, Serum 9.6 ng/mL
[2020-09-11 04:58] LABS: African American GFR (CKD) 101.8 (60.0-200.0); Albumin/Globulin Ratio 1.85 (1.60-3.17); Anion Gap 12.1 mmol/L (4.00-12.00); BUN/Creat Ratio 23.75 Ratio (12.00-20.00); Carbon Dioxide 26.9 mmol/L (21.6-31.8); Globulin 2.7 g/dL (1.6-3.3); Non-African American GFR(CKD) 87.8 (60.0-200.0); Potassium 3.9 mmol/L (3.5-5.5); Total Bilirubin 0.6 mg/dL (0.3-1.2); Total Protein 7.7 g/dL (6.2-8.2)
== END ==
LOC: BARWHC3 14:01
PROVIDERS: ATTEND Surgery
DX: E66.01 Morbid (severe) obesity due to excess calories (principal); Z68.35 Body mass index [BMI] 35.0-35.9, adult; Z87.891 Personal history of nicotine dependence; Z98.84 Bariatric surgery status
CPT/HCPCS: 36415; 80053; 82306; 82607; 82746; 83540; 84425; 85027; 97803; 99211

== ENCOUNTER → 2020-10-29 | Outpatient (CLI) | payer BC ==
[2020-10-29 13:58] VITALS: BP 131/79; PULSE 62; RESP 16; TEMP 98; BMI 33.1
--- NOTE | 2020-10-29 15:45 | P.BASOAP ---
Subjective Progress Note Date: 10/29/20 Principal diagnosis: Morbid obesity Patient returns for evaluation. Last seen 09/10. She returned from [place]. She has lost 18 pounds. She had 1 episode of vomiting to pretzels. Minimal reflux symptoms. Objective - Vital Signs Vital signs: Vital Signs Temp 98 F 10/29/20 13:56 Pulse 62 10/29/20 13:56 Resp 16 10/29/20 13:56 BP 131/79 10/29/20 13:56 Pulse Ox Intake & Output 10/28/20 10/29/20 10/29/20 18:59 06:59 18:59 Weight 97.522 kg - Exam Abdomen: Soft, nontender, nondistended Assessment/Plan (1) Obesity (BMI 30-39.9) Narrative/Plan: Patient doing well at this time. Continue dietary and exercise regimen. Follow-up 4-6 weeks. Check three-month labs at that time. Plan: Date: 10/29/20 Initial Weight: 113.653 kg Initial BMI: 38.6 Current Weight: 97.522 kg Current BMI: 33.1 Type of Surgery: Total Volume in Band: Previous Volume: Volume Removed: Volume Added: Band Size:
== END ==
LOC: BARWHC3 13:09
PROVIDERS: ATTEND Surgery
DX: E66.01 Morbid (severe) obesity due to excess calories (principal); K21.9 Gastro-esophageal reflux disease without esophagitis; Z68.33 Body mass index [BMI] 33.0-33.9, adult; Z88.1 Allergy status to other antibiotic agents; Z87.891 Personal history of nicotine dependence
CPT/HCPCS: 97803; 99211

== ENCOUNTER → 2020-12-24 | Outpatient (CLI) | payer BC | CPT/HCPCS: 36415; 80053; 82306; 82607; 82746; 83540; 84425; 85027; 99211 ==

== ENCOUNTER → 2021-02-11 | Outpatient (CLI) | payer BC ==
[2021-02-11 13:39] VITALS: BP 114/73; PULSE 69; RESP 18; TEMP 98.4; BMI 30.6
--- NOTE | 2021-02-11 14:01 | P.BASOAP ---
Subjective Progress Note Date: 02/11/21 Principal diagnosis: Morbid obesity Patient returns after visit on 12/24. She is 6 months post sleeve gastrectomy. Doing well at this time. She has lost 5 pounds since her last visit. She is off of her antiacids. She is due for 6 month blood work. Objective - Vital Signs Vital signs: Vital Signs Temp 98.4 F 02/11/21 13:36 Pulse 69 02/11/21 13:36 Resp 18 02/11/21 13:36 BP 114/73 02/11/21 13:36 Pulse Ox Intake & Output 02/10/21 02/11/21 02/11/21 18:59 06:59 18:59 Weight 90.038 kg - Exam Abdomen: Soft, nontender, nondistended Assessment/Plan (1) Obesity (BMI 30-39.9) Narrative/Plan: Patient doing fairly well. Weight loss is slowing down somewhat. We will increase her activity levels. Check 6 month blood work. Follow-up 6-8 weeks. Plan: Date: 02/11/21 Initial Weight: 113.653 kg Initial BMI: 38.6 Current Weight: 90.038 kg Current BMI: 30.6 Type of Surgery: Total Volume in Band: Previous Volume: Volume Removed: Volume Added: Band Size:
[2021-02-11 14:18] LABS: HCT 43.2 % (34.0-46.0); HGB 14.8 gm/dL (11.4-16.0); MCH 30.8 pg (25.0-35.0); MCHC 34.2 g/dL (31.0-37.0); Platelet Count 225 k/uL (150-450); RDW 13.8 % (11.5-15.5); WBC 8.3 k/uL (3.8-10.6)
[2021-02-12 01:03] LABS: ALT 21 U/L (8-44); AST 25 U/L (13-35); Albumin/Globulin Ratio 1.68 (1.60-3.17); Alkaline Phosphatase 114 U/L (41-126); Calcium 9.6 mg/dL (8.7-10.3); Carbon Dioxide 27.4 mmol/L (21.6-31.8); Chloride 102 mmol/L (96-109); Globulin 2.8 g/dL (1.6-3.3); Glucose 93 mg/dL (70-110); Iron 91 ug/dL (50-170); Non-African American GFR(CKD) 87.2 (60.0-200.0); Potassium 4.6 mmol/L (3.5-5.5); Sodium 140 mmol/L (135-145); Total Bilirubin 0.5 mg/dL (0.2-1.2); Total Protein 7.5 g/dL (6.2-8.2)
[2021-02-12 01:17] LABS: Folate, Serum >24.0 ng/mL
== END ==
LOC: BARWHC3 13:28
PROVIDERS: ATTEND Surgery
DX: E66.01 Morbid (severe) obesity due to excess calories (principal); Z68.30 Body mass index [BMI] 30.0-30.9, adult; Z87.891 Personal history of nicotine dependence; Z88.1 Allergy status to other antibiotic agents
CPT/HCPCS: 80053; 82306; 82607; 82746; 83540; 84425; 85027; 99211

== ENCOUNTER → 2021-04-22 | Outpatient (CLI) | payer BC ==
[2021-04-22 14:36] VITALS: BP 138/74; PULSE 73; TEMP 98.2; BMI 31.1
--- NOTE | 2021-04-22 19:17 | P.BASOAP ---
Subjective Progress Note Date: 04/22/21 Principal diagnosis: Morbid obesity Patient last seen in October of this year. She had 6 month labs drawn that were normal. Sleeve performed in July of this year. She has gained 3 pounds since her last visit. States she will begin exercising more. Meeting with dietary today. Good liquid and protein intake. Still eating very small amounts of food. Objective - Vital Signs Vital signs: Vital Signs Temp 98.2 F 04/22/21 14:35 Pulse 73 04/22/21 14:35 Resp BP 138/74 04/22/21 14:35 Pulse Ox Intake & Output 04/22/21 04/22/21 04/23/21 06:59 18:59 06:59 Weight 91.626 kg - Exam Abdomen: Soft, nontender, nondistended Assessment/Plan (1) Obesity (BMI 30-39.9) Narrative/Plan: Patient doing well at this time. Begin exercise regimen. Patient has a goal of losing additional weight down to 185. She will follow up with us in July. We'll check annual labs at that time. Patient will see dietary today. Plan: Date: 04/22/21 Initial Weight: 113.653 kg Initial BMI: 38.6 Current Weight: 91.626 kg Current BMI: 31.1 Type of Surgery: Total Volume in Band: Previous Volume: Volume Removed: Volume Added: Band Size:
== END ==
LOC: BARWHC3 13:40
PROVIDERS: ATTEND Surgery
DX: E66.01 Morbid (severe) obesity due to excess calories (principal); Z68.31 Body mass index [BMI] 31.0-31.9, adult; Z98.84 Bariatric surgery status; Z87.891 Personal history of nicotine dependence; Z88.1 Allergy status to other antibiotic agents
CPT/HCPCS: 97803; 99211

== ENCOUNTER → 2021-04-29 | Outpatient (CLI) | payer BC ==
--- NOTE | 2021-05-01 11:53 | MM ---
Reason for exam: screening (asymptomatic). Last mammogram was performed 1 year and 2 months ago. Physical Findings: A clinical breast exam by your physician is recommended on an annual basis and results should be correlated with mammographic findings. MG 3D Screening Mammo W/Cad Bilateral CC and MLO view(s) were taken. Prior study comparison: March 07, 2020, bilateral MG screening mammo w CAD. May 25, 2018, bilateral MG 3d diag mammo w/cad [facility]. The breast tissue is heterogeneously dense. This may lower the sensitivity of mammography. There are benign appearing round calcifications in the left breast. There is no discrete abnormality. ASSESSMENT: Benign, BI-RAD 2 RECOMMENDATION: Routine screening mammogram of both breasts in 1 year.
== END | disposition home or self-care (01) ==
LOC: RADMAMWWP 16:43
PROVIDERS: ATTEND Family Medicine
DX: Z12.31 Encounter for screening mammogram for malignant neoplasm of breast (principal)
CPT/HCPCS: 77063; 77067

== ENCOUNTER → 2021-08-26 | Outpatient (CLI) | payer BC ==
[2021-08-26 15:07] VITALS: BP 130/62; PULSE 77; RESP 16; TEMP 97.5; BMI 33.3
--- NOTE | 2021-08-26 15:51 | P.BASOAP ---
Subjective Progress Note Date: 08/26/21 Principal diagnosis: Morbid obesity Patient returns for recheck. She was last seen in April. Unfortunate she did gain some weight. She is up 14 pounds since that time. Patient says she has had increased stress. She does feel like she is able to eat more at one setting. She was able to eat fried exam which. Patient has been having some chips and cheese for snacking. Patient says she has not been doing much exercise or calorie counting at this time. Objective - Vital Signs Vital signs: Vital Signs Temp 97.5 F L 08/26/21 15:05 Pulse 77 08/26/21 15:05 Resp 16 08/26/21 15:05 BP 130/62 08/26/21 15:05 Pulse Ox Intake & Output 08/25/21 08/26/21 08/26/21 18:59 06:59 18:59 Weight 97.976 kg - Exam Abdomen: Soft, nontender, nondistended Assessment/Plan (1) Obesity (BMI 30-39.9) Narrative/Plan: Patient has had some slow weight gain. Discussed importance of increasing activity. We discussed possibly doing some exercise videos. Also discussed possibly adding weight watchers or other formal diet with her. We'll check annual labs at this time. Plan follow-up in 3 months. Plan: Date: 08/26/21 Initial Weight: 113.653 kg Initial BMI: 38.6 Current Weight: 97.976 kg Current BMI: 33.3 Type of Surgery: Vertical Sleeve Gastrectomy Total Volume in Band: Previous Volume: Volume Removed: Volume Added: Band Size:
[2021-08-27 00:08] LABS: HCT 43.2 % (37.2-46.3); MCH 29.6 pg (27.0-32.0); MCHC 32.4 g/dL (32.0-37.0); MCV 91.3 fL (80.0-97.0); Mean Platelet Volume 11.1 fL (9.5-12.2); NRBC Per 100 WBC 0 /100 WBCS (0.0-0.0); Platelet Count 279 X 10*3/uL (140-440); RBC 4.73 X 10*6/uL (4.10-5.20); RDW 12.6 % (11.5-14.5); WBC 8.89 X 10*3/uL (4.50-10.00)
[2021-08-27 01:02] LABS: ALT 16 U/L (8-44); AST 19 U/L (13-35); African American GFR (CKD) 116.3 (60.0-200.0); Albumin 4.6 g/dL (3.8-4.9); Albumin/Globulin Ratio 1.68 (1.60-3.17); Alkaline Phosphatase 99 U/L (41-126); Blood Urea Nitrogen 14.1 mg/dL (9.0-27.0); Calcium 10.1 mg/dL (8.7-10.3); Carbon Dioxide 24.4 mmol/L (20.0-27.5); Chloride 97 mmol/L (96-109); Globulin 2.8 g/dL (1.6-3.3); Glucose 78 mg/dL (70-110); Iron 109 ug/dL (50-170); Non-African American GFR(CKD) 100.4 (60.0-200.0); Potassium 4.3 mmol/L (3.5-5.5); Sodium 137 mmol/L (135-145); Total Protein 7.4 g/dL (6.2-8.2)
[2021-08-27 01:14] LABS: Folate, Serum >20.00 ng/mL (4.40-31.00)
== END ==
LOC: BARWHC3 14:53
PROVIDERS: ATTEND Surgery
DX: E66.01 Morbid (severe) obesity due to excess calories (principal); K90.89 Other intestinal malabsorption; E55.9 Vitamin D deficiency, unspecified; Z68.33 Body mass index [BMI] 33.0-33.9, adult; Z88.1 Allergy status to other antibiotic agents; Z87.891 Personal history of nicotine dependence
CPT/HCPCS: 80053; 82306; 82607; 82746; 83540; 84425; 85027; 97803; 99211

== ENCOUNTER → 2021-12-09 | Outpatient (CLI) | payer BC ==
[2021-12-09 15:05] VITALS: BP 124/86; PULSE 96; TEMP 98; BMI 33.5
--- NOTE | 2021-12-09 15:32 | P.BASOAP ---
Subjective Progress Note Date: 12/09/21 Principal diagnosis: Morbid obesity The patient returns for recheck. Last seen in August. Gained 1 pound since then. Still not exercising much. She had her 1 year labs checked last visit which were normal. Has taken omeprazole 1-2 times in the last 3 months. No pain. Objective - Vital Signs Vital signs: Vital Signs Temp 98 F 12/09/21 15:02 Pulse 96 12/09/21 15:02 Resp BP 124/86 12/09/21 15:02 Pulse Ox FiO2 Intake & Output 12/08/21 12/09/21 12/09/21 18:59 06:59 18:59 Weight 98.43 kg - Exam Abdomen: Soft, nontender, nondistended Assessment/Plan (1) Obesity (BMI 30-39.9) Narrative/Plan: Patient doing well at this time. Continue increasing activity levels. Continue monitoring protein and caloric intake. Follow-up evaluation 4 months. Plan: Date: 12/09/21 Initial Weight: 113.653 kg Initial BMI: 38.6 Current Weight: 98.43 kg Current BMI: 33.5 Type of Surgery: Total Volume in Band: Previous Volume: Volume Removed: Volume Added: Band Size:
== END ==
LOC: BARWHC3 14:55
PROVIDERS: ATTEND Surgery
DX: E66.01 Morbid (severe) obesity due to excess calories (principal); Z68.33 Body mass index [BMI] 33.0-33.9, adult; Z88.1 Allergy status to other antibiotic agents; Z87.891 Personal history of nicotine dependence
CPT/HCPCS: 99211

== ENCOUNTER 2022-04-01 17:35 | Emergency (ER) | payer BC ==
[2022-04-01 17:45] VITALS: BP 124/78; PULSE 97; RESP 16; TEMP 98
--- NOTE | 2022-04-01 18:16 | ED ---
Headache HPI - General Chief Complaint: Headache Stated Complaint: Headache,dizzy,nausea Time Seen by Provider: 04/01/22 17:54 Mode of arrival: wheelchair Limitations: no limitations - History of Present Illness Initial Comments: Patient is a 51-year-old female presenting with chief complaint of headache. Patient states that about 45 minutes prior to arrival, she was engaging and colitis when she had a sudden onset headache that began on the left lutheran and "shot across her head". She states she felt instant nausea and dizziness. Patient does not have history of migraines. States that this was the worst headache of her life. No loss of consciousness, vomiting, neck pain or stiffness, vision or hearing changes, weakness, difficulty speaking or swallowing, chest pain, difficulty breathing, numbness, tingling. - Related Data Home Medications Medication Instructions Recorded Confirmed FLUoxetine HCL [PROzac] 20 mg PO HS 08/30/18 12/09/21 Spironolactone 50 mg PO HS 06/06/19 12/09/21 diphenhydrAMINE [Benadryl] 25 mg PO HS PRN 05/30/20 12/09/21 Previous Rx's Medication Instructions Recorded Omeprazole [PriLOSEC] 40 mg PO DAILY #30 capsule. 08/15/20 guaiFENesin-DM 100-10MG/5ML 10 ml PO Q6H #120 ml 08/15/20 [Robitussin DM] traMADol HCL [Ultram] 50 mg PO Q6HR PRN 2 Days #6 tab 08/15/20 Albuterol Sulfate [Ventolin HFA] 2 puff INHALATION Q6H PRN 30 Days 08/16/20 #1 inhaler Allergies Allergy/AdvReac Type Severity Reaction Status Date / Time erythromycin base AdvReac Nausea & Verified 02/11/21 13:38 Vomiting Review of Systems ROS Statement: Those systems with pertinent positive or pertinent negative responses have been documented in the HPI. ROS Other: All systems not noted in ROS Statement are negative. Past Medical History Past Medical History: GERD/Reflux, Osteoarthritis (OA), Sleep Apnea/CPAP/BIPAP Additional Past Medical History / Comment(s): RSD(REFLEX SYMPATHETIC DYSTROPHY). MIGRAINE HEADACHE, hital hernia History of Any Multi-Drug Resistant Organisms: None Reported Past Surgical History: Bariatric Surgery, Section, Cholecystectomy, Orthopedic Surgery, Uterine Ablation Additional Past Surgical History / Comment(s): CHOLECYSTECTOMY AND SMALL INTESTINE NICKED AND HAD ABDOMINAL SURGERY, ABDOMINOPLASTY, BUNIONECTOMY. sleeve gastrectomy 08-12-20 GASTRIC BYPASS Past Anesthesia/Blood Transfusion Reactions: Postoperative Nausea & Vomiting (PONV) Additional Past Anesthesia/Blood Transfusion Reaction / Comment(s): FIRST COLONOSCOPY SHE WAS AWARE OF WHAT WAS GOING ON." Past Psychological History: Anxiety, Depression Smoking Status: Former smoker Past Alcohol Use History: None Reported Past Drug Use History: None Reported - Past Family History Mother Family Medical History: No Reported History General Exam Limitations: no limitations General appearance: alert, in no apparent distress Head exam: Present: atraumatic, normocephalic, normal inspection Eye exam: Present: normal appearance, PERRL, EOMI. Absent: scleral icterus, conjunctival injection, periorbital swelling Neck exam: Present: normal inspection, full ROM. Absent: tenderness Respiratory exam: Present: normal lung sounds bilaterally. Absent: respiratory distress, wheezes, rales, rhonchi, stridor Cardiovascular Exam: Present: regular rate, normal rhythm, normal heart sounds. Absent: systolic murmur, diastolic murmur, rubs, gallop, clicks Extremities exam: Present: normal inspection, full ROM Neurological exam: Present: alert, oriented X3, CN II-XII intact Expanded Patient oriented to: Present: person, place, time Speech: Present: fluid speech Cranial nerves: EOM's Intact: Normal, Tongue Deviation: Normal, Facial Sensation: Normal Sensory exam: Upper Extremity Light Touch: Normal, Lower Extremity Light Touch: Normal Motor strength exam: RUE: 5, LUE: 5, RLE: 5, LLE: 5 Eye Response: (4) open spontaneously Motor Response: (6) obeys commands Verbal Response: (5) oriented [place] Total: 15 Psychiatric exam: Present: normal affect, normal mood Skin exam: Present: warm, dry, intact, normal color. Absent: rash Course Vital Signs 04/01/22 17:39 Temperature 98 F Pulse Rate 97 Respiratory 16 Rate Blood Pressure 124/78 O2 Sat by Pulse 96 Oximetry Medical Decision Making - Medical Decision Making Patient is a 51-year-old female presenting with chief complaint of headache. Patient states that the headache came on suddenly during coitus. Admits to nausea and dizziness. On examination there are no focal neurological deficits, extraocular motions are intact, full strength and sensation in all extremities, facial movements and sensation are intact. CT of the brain without contrast shows no acute intracranial process. I informed the patient of the CT results. Explained that I would like to run lab work and administer pain medication. Patient left AGAINST MEDICAL ADVICE prior to obtaining further lab work and trialing medication. Patient should follow-up with her PCP and report back to ER with any new or worsening symptoms. My attending is Dr. Thornton Disposition Clinical Impression: Coital headache Disposition: Left Against Medical Advice Condition: Fair Instructions (If sedation given, give patient instructions): Acute Headache (ED) Additional Instructions: Follow-up with PCP. Report back to ER with any new or worsening symptoms. Is patient prescribed a controlled substance at d/c from ED?: No Referrals: Shameka Crotés MD [Primary Care Provider] - 1-2 days
--- NOTE | 2022-04-01 18:34 | CT ---
EXAMINATION TYPE: CT brain wo con DATE OF EXAM: 04/01/2022 COMPARISON: None HISTORY: CT DLP: mGycm Automated exposure control for dose reduction was used. Images obtained of the brain with no contrast. Ventricles and sulci appear normal. There is no mass effect or midline shift. No sign of intracranial hemorrhage. No evidence of cerebral edema. The calvarium is intact. There is normal aeration of the mastoid sinuses. Paranasal sinuses are fairly normal. IMPRESSION: Negative unenhanced head CT scan.
[2022-04-01] MEDS ORDERED: DEXAMETHASONE SOD PHOSPHATE 10 MG/ML 1 ML VIAL IV STA (19:18)
[2022-04-01] MEDS ORDERED: METOCLOPRAMIDE 5 MG/ML 2 ML VIAL IVP STA (19:18)
[2022-04-01] MEDS ORDERED: SODIUM CHLORIDE 0.9% 1,000 ML IV STA (19:18)
[2022-04-01] MEDS ORDERED: diphenhydrAMINE 50 MG/ML 1 ML VIAL IVP STA (19:18)
[2022-04-01] MEDS ORDERED: KETOROLAC 15 MG/ML 1 ML VIAL IVP STA (19:18)
== END 2022-04-01 23:51 | disposition left against medical advice (07) ==
LOC: EC 17:35
DX: R51.9 Headache, unspecified (principal); K21.9 Gastro-esophageal reflux disease without esophagitis; Z88.1 Allergy status to other antibiotic agents; Z99.89 Dependence on other enabling machines and devices; Z79.899 Other long term (current) drug therapy; Z87.891 Personal history of nicotine dependence; Z53.29 Procedure and treatment not carried out because of patient's decision for other reasons
CPT/HCPCS: 70450; 99284

== ENCOUNTER → 2022-04-14 | Outpatient (CLI) | payer BC ==
[2022-04-14 14:58] VITALS: BP 124/77; PULSE 71; RESP 16; TEMP 98; BMI 32.7
--- NOTE | 2022-04-14 15:05 | P.BASOAP ---
Subjective Progress Note Date: 04/14/22 Principal diagnosis: Morbid obesity Patient returns for recheck. He underwent sleeve gastrectomy July 2020. Doing well since last visit. She has lost 5 pounds. Taking omeprazole once per month for mild reflux symptoms. Eating less than she was before. She is walking more recently. Objective - Vital Signs Vital signs: Vital Signs Temp 98 F 04/14/22 14:55 Pulse 71 04/14/22 14:55 Resp 16 04/14/22 14:55 BP 124/77 04/14/22 14:55 Pulse Ox FiO2 Intake & Output 04/13/22 04/14/22 04/14/22 18:59 06:59 18:59 Weight 96.162 kg - Exam Abdomen: Soft, nontender, nondistended Assessment/Plan (1) Obesity (BMI 30-39.9) Narrative/Plan: Patient doing well at this time. Continue exercise and dietary regimen. Plan repeat clinical exam in July. We'll check 2yr labs at that time. Plan: Date: 04/14/22 Initial Weight: 113.653 kg Initial BMI: 38.6 Current Weight: 96.162 kg Current BMI: 32.7 Type of Surgery: Vertical Sleeve Gastrectomy Total Volume in Band: Previous Volume: Volume Removed: Volume Added: Band Size:
== END | disposition home or self-care (01) ==
LOC: BARWHC3 14:46
PROVIDERS: ATTEND Surgery
DX: E66.01 Morbid (severe) obesity due to excess calories (principal); Z68.32 Body mass index [BMI] 32.0-32.9, adult
CPT/HCPCS: 99211

== ENCOUNTER → 2022-04-14 | Outpatient (CLI) | payer BC | END | disposition home or self-care (01) | LOC: LABWHC1 15:15 | PROVIDERS: ATTEND Family Medicine | DX: R51.9 Headache, unspecified (principal) | CPT/HCPCS: 36415; 84443; 85652; 86140 ==

== ENCOUNTER → 2022-09-10 | Outpatient (CLI) | payer BC | END | disposition home or self-care (01) | LOC: RADMAMWWP 16:49 | PROVIDERS: ATTEND Family Medicine | DX: Z53.9 Procedure and treatment not carried out, unspecified reason (principal) ==

== ENCOUNTER → 2022-09-16 | Outpatient (CLI) | payer BC ==
--- NOTE | 2022-09-17 11:18 | MM ---
Reason for Exam: Screening (asymptomatic). Last mammogram was performed 1 year(s) and 4 month(s) ago. Patient History: Menarche at age 13. First Full-Term at age 32. Late child-bearing (after 32). Postmenopausal. Hormonal Contraceptives, from age 20 until age 44. Risk Values: Flory 5 year model risk: 1.4%. Prior Study Comparison: 05/25/2018 Bilateral Diagnostic Mammogram, [facility]. 03/07/2020 Bilateral Screening Mammogram, [facility]. 04/29/2021 Bilateral Screening Mammogram, [facility]. Tissue Density: The breast tissue is heterogeneously dense. This may lower the sensitivity of mammography. Findings: Analyzed By CAD. Pattern appears stable. Some focal asymmetries within the right breast which is unchanged from comparison. No suspicious groups of microcalcifications, spiculated or lobular masses, architectural distortion or other secondary signs of malignancy are mammographically apparent. Overall Assessment: Benign, BI-RAD 2 Management: Screening Mammogram of both breasts in 1 year. A negative mammogram report should not preclude additional follow up of suspicious palpable abnormalities. Patient should continue monthly self breast exam. A clinical breast exam by your physician is recommended on an annual basis and results should be correlated with mammographic findings. Electronically signed and approved by: Calos Rodas D.O. Radiologis
== END | disposition home or self-care (01) ==
LOC: LABWHC1 16:39
PROVIDERS: ATTEND Family Medicine
DX: Z12.31 Encounter for screening mammogram for malignant neoplasm of breast (principal); Z78.0 Asymptomatic menopausal state
CPT/HCPCS: 77063; 77067

== ENCOUNTER → 2023-02-09 | Outpatient (CLI) | payer BC ==
[2023-02-09 16:07] VITALS: BP 124/66; PULSE 71; RESP 16; TEMP 98; BMI 33.1
--- NOTE | 2023-02-09 16:22 | P.BASOAP ---
Subjective Progress Note Date: 02/09/23 Principal diagnosis: Morbid obesity The patient returns for recheck. Doing well since last visit in July. She has had a lot of stress because she is moving. Some increase in activity. Weight is the same at 2:15. Good restriction. No heartburn. No antiacids. Labs were checked last visit. Vitamin D was slightly low. Objective - Vital Signs Vital signs: Vital Signs Temp 98 F 02/09/23 16:04 Pulse 71 02/09/23 16:04 Resp 16 02/09/23 16:04 BP 124/66 02/09/23 16:04 Pulse Ox FiO2 Intake & Output 02/08/23 02/09/23 02/09/23 18:59 06:59 18:59 Weight 97.522 kg - Exam Abdomen: Soft, nontender, nondistended Assessment/Plan (1) Obesity (BMI 30-39.9) Narrative/Plan: Patient doing well at this time. Continue dietary and exercise regimen. Follow-up for 3 year visit in August. Check 3 her labs at that time. Plan: Date: 02/09/23 Initial Weight: 113.653 kg Initial BMI: 38.6 Current Weight: 97.522 kg Current BMI: 33.1 Type of Surgery: Vertical Sleeve Gastrectomy Total Volume in Band: Previous Volume: Volume Removed: Volume Added: Band Size:
== END ==
LOC: BARWHC3 15:30
PROVIDERS: ATTEND Surgery
DX: E66.01 Morbid (severe) obesity due to excess calories (principal); Z71.3 Dietary counseling and surveillance; Z68.33 Body mass index [BMI] 33.0-33.9, adult; Z88.1 Allergy status to other antibiotic agents; Z87.891 Personal history of nicotine dependence
CPT/HCPCS: 99211

== ENCOUNTER → 2023-05-31 | Outpatient (CLI) | payer BC | END | disposition home or self-care (01) | LOC: RADMAMWWP 16:19 | PROVIDERS: ATTEND Family Medicine | DX: Z53.9 Procedure and treatment not carried out, unspecified reason (principal) ==

== ENCOUNTER → 2023-08-31 | Outpatient (CLI) | payer BC ==
[2023-08-31 15:56] VITALS: BP 139/60; PULSE 92; RESP 16; TEMP 98.2; BMI 33.9
--- NOTE | 2023-08-31 16:24 | P.BASOAP ---
Subjective Progress Note Date: 08/31/23 Principal diagnosis: Morbid obesity Patient returns for recheck. She was last seen in January. Weight has gone up somewhat. She has gained 5 pounds. She tends to hover between 210 and 215. She is 3 years out from sleeve gastrectomy. Mild intermittent GERD symptoms. Takes antiacids as needed. Patient says her sister takes Wegovy. She was hoping she could start that but has had trouble getting that covered. Her sister did quite well losing about 30 to 40 pounds. Still feels restricted. Objective - Vital Signs Vital signs: Vital Signs Temp 98.2 F 08/31/23 15:34 Pulse 92 08/31/23 15:34 Resp 16 08/31/23 15:34 BP 139/60 08/31/23 15:34 Pulse Ox FiO2 Intake & Output 08/30/23 08/31/23 08/31/23 18:59 06:59 18:59 Weight 99.79 kg - Exam Abdomen: Soft, nontender, nondistended Assessment/Plan (1) Obesity (BMI 30-39.9) Narrative/Plan: 52-year-old female with obesity history. Doing relatively well after prior sleeve gastrectomy. Patient would like to lose more weight. Would support her decision to try a GLP-1 agonist to see how this affects her metabolism and weig ht loss. Do believe the patient meets appropriate criteria to have this covered. Would consider this a medical necessity at this point given her weight gain. She will discuss further with her primary care physician. Will check 3- year lab work at this time. Plan follow-up 1 year. Continue as needed antiacids. Plan: Date: 08/31/23 Initial Weight: 113.653 kg Initial BMI: 38.6 Current Weight: 99.79 kg Current BMI: 33.9 Type of Surgery: Vertical Sleeve Gastrectomy Total Volume in Band: Previous Volume: Volume Removed: Volume Added: Band Size:
== END ==
LOC: BARWHC3 15:31
PROVIDERS: ATTEND Surgery
DX: E66.01 Morbid (severe) obesity due to excess calories (principal); Z68.38 Body mass index [BMI] 38.0-38.9, adult; Z98.84 Bariatric surgery status; Z88.1 Allergy status to other antibiotic agents; Z87.891 Personal history of nicotine dependence
CPT/HCPCS: 99211

== ENCOUNTER → 2023-09-16 | Outpatient (CLI) | payer BC ==
[2023-09-17 02:04] LABS: HCT 42.2 % (37.2-46.3); HGB 13.3 g/dL (12.0-15.0); MCH 30.3 pg (27.0-32.0); MCHC 31.5 g/dL (32.0-37.0); MCV 96.1 FL (80.0-97.0); Mean Platelet Volume 11.2 FL (9.5-12.2); NRBC Per 100 WBC 0 X 10*3/uL (0.00-0.01); Platelet Count 282 X 10*3/uL (140-440); RBC 4.39 X 10*6/uL (4.10-5.20); RDW 12.5 % (11.5-14.5); WBC 9.74 X 10*3/uL (4.50-10.00)
[2023-09-17 02:49] LABS: ALT 23 U/L (8-44); AST 26 U/L (13-35); Albumin 4.6 g/dL (3.8-4.9); Albumin/Globulin Ratio 1.64 Ratio (1.60-3.17); Alkaline Phosphatase 113 U/L (41-126); BUN/Creat Ratio 19.25 Ratio (12.00-20.00); Blood Urea Nitrogen 15.4 mg/dL (9.0-27.0); Calcium 10.2 mg/dL (8.7-10.3); Carbon Dioxide 28.5 mmol/L (21.6-31.8); Chloride 101 mmol/L (96-109); Globulin 2.8 g/dL (1.6-3.3); Glucose 88 mg/dL (70-110); Potassium 4.4 mmol/L (3.5-5.5); Sodium 141 mmol/L (135-145); Total Bilirubin 0.2 mg/dL (0.3-1.2); Total Protein 7.4 g/dL (6.2-8.2)
== END | disposition home or self-care (01) ==
LOC: LABWHC1 16:21
PROVIDERS: ATTEND Surgery
DX: E66.01 Morbid (severe) obesity due to excess calories (principal); E55.9 Vitamin D deficiency, unspecified; K90.89 Other intestinal malabsorption
CPT/HCPCS: 36415; 80053; 82306; 82607; 82746; 83036; 84425; 85027

== ENCOUNTER → 2024-06-15 | Outpatient (CLI) | payer BC ==
[2024-06-15 16:01] LABS: Basophils # (A) 0.08 X 10*3/uL (0.00-0.10); Basophils % (A) 1.2 %; Eosinophils # (A) 0.11 X 10*3/uL (0.04-0.35); Eosinophils % (A) 1.7 %; HCT 45.4 % (37.2-46.3); HGB 14.7 g/dL (12.0-15.0); Lymphocytes # (A) 1.71 X 10*3/uL (0.90-5.00); Lymphocytes % (A) 25.9 %; MCH 30.1 pg (27.0-32.0); MCHC 32.4 g/dL (32.0-37.0); Mean Platelet Volume 11.1 FL (9.5-12.2); Monocytes % (A) 7.6 %; NRBC Per 100 WBC 0 X 10*3/uL (0.00-0.01); Neutrophils # (A) 4.17 X 10*3/uL (1.80-7.70); Neutrophils % (A) 63.3 %; Platelet Count 261 X 10*3/uL (140-440); RBC 4.88 X 10*6/uL (4.10-5.20); RDW 12.3 % (11.5-14.5); WBC 6.59 X 10*3/uL (4.50-10.00)
[2024-06-15 16:23] LABS: Blood Urea Nitrogen 9.6 mg/dL (9.0-27.0); Glucose 89 mg/dL (70-110)
[2024-06-15 16:24] LABS: ALT 21 U/L (8-44); AST 23 U/L (13-35); Albumin 4.6 g/dL (3.8-4.9); Albumin/Globulin Ratio 1.77 Ratio (1.60-3.17); Alkaline Phosphatase 103 U/L (41-126); Calcium 10.1 mg/dL (8.7-10.3); Carbon Dioxide 27.9 mmol/L (21.6-31.8); Chloride 102 mmol/L (96-109); Globulin 2.6 g/dL (1.6-3.3); LDL Cholesterol,Calculated 56.2 mg/dL (0.0-131.0); Potassium 4.5 mmol/L (3.5-5.5); Sodium 141 mmol/L (135-145); Total Bilirubin 0.4 mg/dL (0.3-1.2); Total Protein 7.2 g/dL (6.2-8.2)
--- NOTE | 2024-06-20 19:08 | MM ---
Reason for Exam: Screening (asymptomatic). Last mammogram was performed 1 year(s) and 9 month(s) ago. Patient History: Menarche at age 13. First Full-Term at age 32. Late child-bearing (after 32). Postmenopausal. Hormonal Contraceptives, from age 20 until age 44. Risk Values: Flory 5 year model risk: 1.5%. NCI Lifetime model risk: 13.0%. Prior Study Comparison: 03/07/2020 Bilateral Screening Mammogram, [facility]. 04/29/2021 Bilateral Screening Mammogram, [facility]. 09/16/2022 Bilateral MG 3D screening mammo w/cad, [facility]. Tissue Density: The breasts are heterogeneously dense, which may obscure small masses. Findings: Analyzed By CAD. Unchanged global asymmetry upper outer quadrant right breast. Unchanged central asymmetric density left cc view middle depth. Chronic nodularity superior anterior left MLO view. There is no suspicious group of microcalcifications or new suspicious mass in either breast. Overall Assessment: Benign, BI-RAD 2 Management: Screening Mammogram of both breasts in 1 year. . Patient should continue monthly self-breast exams. A clinical breast exam by your physician is recommended on an annual basis. This exam should not preclude additional follow-up of suspicious palpable abnormalities. Note on Flory scores and lifetime risk: 1. A Flory score greater than 3% is considered moderate risk. If this is the case, consider specialist referral to assess eligibility for a risk reducing agent. 2. If overall lifetime risk for the development of breast cancer is 20% or higher, the patient may qualify for future screening with alternating mammogram and breast MRI. [facility], , 06/20/2024 7:05 PM. Electronically signed and approved by: Juliann Sahni M.D. Radiologist
== END | disposition home or self-care (01) ==
LOC: RADMAMWWP 11:44
PROVIDERS: ATTEND Family Medicine
DX: Z12.31 Encounter for screening mammogram for malignant neoplasm of breast (principal); Z13.29 Encounter for screening for other suspected endocrine disorder; R92.333 Mammographic heterogeneous density, bilateral breasts; E55.9 Vitamin D deficiency, unspecified; E66.9 Obesity, unspecified; Z13.220 Encounter for screening for lipoid disorders; Z78.0 Asymptomatic menopausal state
CPT/HCPCS: 77063; 77067; 80053; 80061; 84443; 85025

== ENCOUNTER → 2024-09-26 | Outpatient (CLI) | payer BC ==
[2024-09-26 15:39] VITALS: BP 135/93; PULSE 88; TEMP 97.9; BMI 25.6
--- NOTE | 2024-09-26 15:45 | P.BASOAP ---
Subjective Progress Note Date: 09/26/24 Principal diagnosis: Morbid obesity Patient returns for recheck. Last seen in August of last year. Patient was started on Wegovy and did quite well. She is down 54 pounds since starting that. No side effects. Rarely takes antiacids for heartburn. No nausea or vomiting. No dysphagia. Had a CBC and CMP in May which looked okay. Her labs performed last August looked good as well. Objective - Vital Signs Vital signs: Vital Signs Temp 97.9 F 09/26/24 15:36 Pulse 88 09/26/24 15:36 Resp BP 135/93 09/26/24 15:36 Pulse Ox FiO2 Intake & Output 09/25/24 09/26/24 09/26/24 18:59 06:59 18:59 Weight 75.296 kg - Exam Abdomen: Soft, nontender, nondistended Assessment/Plan (1) Obesity (BMI 30-39.9) Narrative/Plan: Patient doing well today. Excellent weight loss with the GLP-1 agonist. Hopefully that can continue for now. Monitor weight loss. Continue dietary and exercise regimen. Plan recheck 1 year. Lab slip provided for her to take to her primary care physician appointment next month. Plan: Date: 09/26/24 Initial Weight: 113.653 kg Initial BMI: 38.6 Current Weight: 75.296 kg Current BMI: 25.6 Type of Surgery: Total Volume in Band: Previous Volume: Volume Removed: Volume Added: Band Size:
== END ==
LOC: BARWHC3 15:29
PROVIDERS: ATTEND Surgery
DX: E66.01 Morbid (severe) obesity due to excess calories (principal); Z68.25 Body mass index [BMI] 25.0-25.9, adult; Z87.891 Personal history of nicotine dependence; Z88.1 Allergy status to other antibiotic agents
CPT/HCPCS: 99211